=== PATIENT | female | born 1980 | race Caucasian/White ===

== ENCOUNTER 2019-12-28 17:01 | Outpatient (REF) | payer OTHER, SELFPAY ==
--- NOTE | 2019-12-28 | MM_ITS ---
EXAMINATION: MM SCREENING DIGITAL BREAST TOMOSYNTHESIS, BILATERAL CLINICAL INFORMATION: Screening. Asymptomatic. Family history breast cancer. No prior mammography. Age 39. The lifetime risk of breast cancer based on the Tyrer-Cuzick Model is 22%. COMPARISON: None (current study represents initial baseline exam). TECHNIQUE: Digital breast tomosynthesis is performed in both the craniocaudal and mediolateral oblique views along with computer-aided detection (CAD). Synthesized 2D images are generated from the tomosynthesis. Additional right MLO and bilateral exaggerated CC views are provided. FINDINGS: There are scattered areas of fibroglandular density (ACR BI-RADS breast composition Category b). Breast tissue composition borders on predominantly fatty. There is no significant mass or architectural abnormality. There are no abnormal calcifications. The axilla and skin contours are unremarkable. IMPRESSION: No mammographic evidence of malignancy. ASSESSMENT: BI-RADS 1: Negative RECOMMENDATION: 1. Routine annual mammography screening. 2. The lifetime risk of breast cancer based on the Tyrer-Cuzick Model is 22%. Additional annual screening with breast MRI may be of benefit in women with a risk score of 20% or greater. This patient's information was entered into a reminder system with a target due date for their next mammogram.
== END 2019-12-28 17:02 | disposition home or self-care (01) ==
LOC: HO.MAMMO 17:01
PROVIDERS: Visit Provider Hospitalist
DX: Z12.31 Encounter for screening mammogram for malignant neoplasm of breast (principal)
CPT/HCPCS: 77063; 77067

== ENCOUNTER 2020-01-26 10:16 | Outpatient (REF) | payer OTHER, SELFPAY ==
[2020-01-26 13:00] LABS: Alanine Aminotransferase 23 U/L (0-31); Albumin Level 4.3 g/dL (3.5-5.0); Alkaline Phosphatase 54 U/L (39-117); Aspartate Amino Transferase 15 U/L (5-31); Bilirubin Direct 0.2 mg/dL (0.0-0.5); Bilirubin Total 0.5 mg/dL (0.0-1.0)
[2020-01-27 03:09] LABS: CT PCR NOT DETECTED (Not Detect.); NG PCR NOT DETECTED (Not Detect.)
[2020-01-27 08:18] LABS: BV Int Neg Control Negative (Negative); BV Int Pos Control Positive (Positive)
== END 2020-01-26 10:17 | disposition home or self-care (01) ==
LOC: HO.LAB 10:16
PROVIDERS: PCP Hospitalist; Referring Provider Hospitalist; Visit Provider Obstetrics & Gynecology
DX: Z01.419 Encounter for gynecological examination (general) (routine) without abnormal findings (principal); B37.3 Candidiasis of vulva and vagina; N76.0 Acute vaginitis; B96.89 Other specified bacterial agents as the cause of diseases classified elsewhere
CPT/HCPCS: 80076; 87480; 87491; 87510; 87591; 87660

== ENCOUNTER → 2020-04-20 10:29 | Outpatient (BNVA) | payer OTHER, SELFPAY | PROVIDERS: PCP Hospitalist | DX: Z30.42 Encounter for surveillance of injectable contraceptive (principal) | CPT/HCPCS: 96372; 99211; J1050 ==

== ENCOUNTER → 2020-07-13 10:48 | Outpatient (BNVA) | payer OTHER, SELFPAY | PROVIDERS: PCP Hospitalist; Visit Provider Advanced Practice Midwife | DX: Z30.9 Encounter for contraceptive management, unspecified (principal) | CPT/HCPCS: 96372; 99211; J1050 ==

== ENCOUNTER → 2020-10-04 10:44 | Outpatient (BNVA) | payer OTHER, SELFPAY | PROVIDERS: PCP Hospitalist; Visit Provider Advanced Practice Midwife | DX: Z30.42 Encounter for surveillance of injectable contraceptive (principal) | CPT/HCPCS: 96372; 99211 ==

== ENCOUNTER → 2020-12-28 10:49 | Outpatient (BNVA) | payer OTHER, SELFPAY | PROVIDERS: PCP Hospitalist; Visit Provider Advanced Practice Midwife | DX: Z30.42 Encounter for surveillance of injectable contraceptive (principal) | CPT/HCPCS: 96372; 99211 ==

== ENCOUNTER 2021-01-31 09:49 | Outpatient (REF) | payer OTHER, SELFPAY ==
[2021-02-03 02:47] LABS: HPV mRNA E6/E7 rflx Not Detected (Not Detected)
== END 2021-01-31 09:50 | disposition home or self-care (01) ==
LOC: HO.LAB 09:49
PROVIDERS: PCP Hospitalist; Visit Provider Obstetrics & Gynecology
DX: Z01.419 Encounter for gynecological examination (general) (routine) without abnormal findings (principal); Z11.51 Encounter for screening for human papillomavirus (HPV)
CPT/HCPCS: 87624; 88142

== ENCOUNTER 2021-03-01 10:30 | Outpatient (REF) | payer OTHER, SELFPAY ==
--- NOTE | ~2021-03-01 | MM_ITS ---
EXAMINATION: MM SCREENING DIGITAL BREAST TOMOSYNTHESIS, BILATERAL CLINICAL INFORMATION: Screening. Asymptomatic. The lifetime risk of breast cancer based on the Tyrer-Cuzick Model is 24.2%. Additional annual screening with breast MRI may be of benefit in women with a Score of 20% or greater. COMPARISON: Mammography: December 28, 2019 TECHNIQUE: Digital breast tomosynthesis is performed in both the craniocaudal and mediolateral oblique views along with computer-aided detection (CAD). Synthesized 2D images are generated from the tomosynthesis. FINDINGS: The breasts are almost entirely fatty (ACR BI-RADS breast composition Category a). There are no significant masses, abnormal calcifications, or other abnormalities. MM/MM tomosynthesis screening BI IMPRESSION: There are no significant changes from prior study. ASSESSMENT: BI-RADS 1: Negative RECOMMENDATION: Routine annual mammography screening. This patient's information was entered into a reminder system with a target due date for their next mammogram.
== END 2021-03-01 10:31 | disposition home or self-care (01) ==
LOC: HO.MAMMO 10:30
PROVIDERS: PCP Hospitalist; Visit Provider Obstetrics & Gynecology
DX: Z12.31 Encounter for screening mammogram for malignant neoplasm of breast (principal)
CPT/HCPCS: 77063; 77067

== ENCOUNTER → 2021-03-19 08:57 | Outpatient (BNVA) | payer OTHER, SELFPAY | PROVIDERS: Visit Provider Obstetrics & Gynecology | DX: Z91.89 Other specified personal risk factors, not elsewhere classified (principal); Z30.9 Encounter for contraceptive management, unspecified | CPT/HCPCS: 99212 ==

== ENCOUNTER → 2021-04-13 08:54 | Outpatient (BNVA) | payer OTHER, SELFPAY | PROVIDERS: PCP Hospitalist; Referring Provider Hospitalist; Visit Provider Surgery | DX: Z91.89 Other specified personal risk factors, not elsewhere classified (principal); Z80.3 Family history of malignant neoplasm of breast | CPT/HCPCS: 99202 ==

== ENCOUNTER → 2021-05-25 08:58 | Outpatient (BNVA) | payer OTHER, SELFPAY | PROVIDERS: PCP Hospitalist; Referring Provider Hospitalist; Visit Provider Surgery | DX: Z91.89 Other specified personal risk factors, not elsewhere classified (principal) | CPT/HCPCS: 99212 ==

== ENCOUNTER → 2021-06-01 08:49 | Outpatient (BNV) | payer OTHER, SELFPAY | PROVIDERS: PCP Hospitalist; Referring Provider Surgery; Visit Provider Internal Medicine | DX: Z80.3 Family history of malignant neoplasm of breast (principal) | CPT/HCPCS: 99204; 99213; 99214; G2211 ==

== ENCOUNTER 2021-08-07 09:26 | Outpatient (REF) | payer OTHER, SELFPAY ==
[2021-08-07 10:38] LABS: Blood Urea Nitrogen 7 mg/dL (9-16); Estimated Glomerular Filt Rate > 60
== END 2021-08-07 09:27 | disposition home or self-care (01) ==
LOC: HO.LAB 09:26
PROVIDERS: PCP Hospitalist; Visit Provider Obstetrics & Gynecology
DX: Z01.812 Encounter for preprocedural laboratory examination (principal); Z91.89 Other specified personal risk factors, not elsewhere classified
CPT/HCPCS: 36415; 82565; 84520

== ENCOUNTER 2021-08-09 16:37 | Outpatient (REF) | payer OTHER, SELFPAY ==
--- NOTE | ~2021-08-09 | MR_ITS ---
EXAMINATION: MR BREAST WITHOUT AND WITH CONTRAST, BILATERAL CLINICAL INFORMATION: High-risk screening. Family history of breast cancer. COMPARISON: No prior breast MRI. TECHNIQUE: Imaging was performed with a dedicated breast coil. Prior to the administration of contrast, bilateral axial T1 and bilateral axial T2 weighted sequences were obtained. After the uneventful administration of?10 mL of Gadavist, dynamic contrast-enhanced VIBRANT series through the breasts in the axial plane were performed. Subtracted images were performed and reviewed. A delayed sagittal sequence through both breasts was acquired. Additionally, CAD post-processing, including maximum intensity projections, 3-D reconstructions and kinetic analysis, were performed an independent workstation and reviewed by the interpreting radiologist is a portion of this exam. FINDINGS: The patient's fibroglandular tissue demonstrates minimal background enhancement. LEFT BREAST: No suspicious masslike or non-masslike enhancement. No abnormal skin thickening or nipple retraction. No abnormal architectural distortion. Review of the T2 weighted images demonstrates no fibrocystic changes or dilated ducts. Review of kinetic images reveals no additional findings. RIGHT BREAST: No suspicious masslike or non-masslike enhancement. No abnormal skin thickening or nipple retraction. No abnormal architectural distortion. Review of the T2 weighted images demonstrates no fibrocystic changes or dilated ducts. Review of kinetic images reveals no additional findings. There is no suspicious internal mammary chain or axillary adenopathy. Limited views of the chest and abdomen are unremarkable. MR/MR breast BI wo/w con IMPRESSION: No MR specific evidence of malignancy. ASSESSMENT: LEFT BREAST: BI-RADS 1-Negative RIGHT BREAST: BI-RADS 1-Negative RECOMMENDATIONS: Clinical follow-up. Continued annual mammographic surveillance. Further breast MRI as risk factors dictate.
== END 2021-08-09 16:38 | disposition home or self-care (01) ==
LOC: HO.MRI 16:37
PROVIDERS: Visit Provider Obstetrics & Gynecology
DX: Z91.89 Other specified personal risk factors, not elsewhere classified (principal)
CPT/HCPCS: 77049; A9585

== ENCOUNTER → 2021-11-27 09:32 | Outpatient (BNVA) | payer OTHER, SELFPAY | PROVIDERS: PCP Hospitalist; Referring Provider Hospitalist; Visit Provider Surgery | DX: Z80.3 Family history of malignant neoplasm of breast (principal); Z79.810 Long term (current) use of selective estrogen receptor modulators (SERMs) | CPT/HCPCS: 99212 ==

== ENCOUNTER 2022-02-12 12:33 | Outpatient (REF) | payer OTHER, SELFPAY ==
[2022-02-12 14:12] LABS: Hematocrit 38.6 % (37.0-47.0); Hemoglobin 12.8 g/dl (12.0-16.0); Mean Corpuscular HGB Conc 33.2 g/dl (31.0-35.0); Mean Corpuscular Hemoglobin 29.6 pg (27.0-33.0); Mean Corpuscular Volume 89.1 fL (80.0-98.0); Platelet Count 274 X10*3/uL (160-400); Red Blood Count 4.33 X10*6/uL (4.20-5.50); Red Cell Distribution Width 12.3 % (11.0-16.0); White Blood Count 9.2 X10*3/uL (4.8-10.8)
[2022-02-12 15:17] LABS: Alanine Aminotransferase 32 U/L (0-31); Alkaline Phosphatase 68 U/L (39-117); Anion Gap 15 (12-20); Aspartate Amino Transferase 24 U/L (5-31); Bilirubin Total 0.3 mg/dL (0.0-1.0); Blood Urea Nitrogen 7 mg/dL (9-16); Calcium 9.4 mg/dL (8.4-10.2); Carbon Dioxide 24 mmol/L (22-29); Chloride 102 mmol/L (96-108); Cholesterol 150 mg/dL; Estimated Glomerular Filt Rate > 60; Glucose Fasting 169 mg/dL (60-99); HDL Cholesterol 33 mg/dL; LDL Cholesterol Calculated 52 mg/dl; Potassium 4.1 mmol/L (3.3-5.1); Sodium 137 mmol/L (135-145); TSH reflex Free T4 1.06 uIU/mL (0.32-4.0); Total Protein 6.5 g/dL (6.5-8.0); Triglycerides 329 mg/dL
[2022-02-12 15:23] LABS: Vitamin B12 259 pg/mL (200-900)
[2022-02-17 15:03] LABS: Vitamin D 25-OH, D2 <4 ng/mL; Vitamin D 25-OH, D3 35 ng/mL; Vitamin D 25-OH, Total 35 ng/mL (30-100)
== END 2022-02-12 12:34 | disposition home or self-care (01) ==
LOC: HO.WFDLDS 12:33
PROVIDERS: Visit Provider Hospitalist
DX: Z00.00 Encounter for general adult medical examination without abnormal findings (principal); R53.83 Other fatigue; R20.2 Paresthesia of skin
CPT/HCPCS: 36415; 80053; 80061; 82306; 82607; 84443; 85027

== ENCOUNTER 2022-03-07 08:43 | Outpatient (REF) | payer OTHER, SELFPAY | END 2022-03-07 08:44 | disposition home or self-care (01) | LOC: HO.MAMMO 08:43 | PROVIDERS: PCP Hospitalist; Visit Provider Hospitalist | DX: Z12.31 Encounter for screening mammogram for malignant neoplasm of breast (principal) | CPT/HCPCS: 77063; 77067 ==

== ENCOUNTER → 2022-06-04 11:17 | Outpatient (BNVA) | payer OTHER, SELFPAY | PROVIDERS: PCP Hospitalist; Visit Provider Surgery | DX: Z80.3 Family history of malignant neoplasm of breast (principal) | CPT/HCPCS: 99212 ==

== ENCOUNTER 2022-06-19 07:58 | Outpatient (REF) | payer OTHER, SELFPAY ==
--- NOTE | ~2022-06-19 | MR_ITS ---
EXAMINATION: MR BREAST WITHOUT AND WITH CONTRAST, BILATERAL CLINICAL INFORMATION: High-risk screening, family history of breast cancer. COMPARISON: Bilateral breast MRI 08/09/2021. TECHNIQUE: Imaging was performed with a dedicated breast coil. Prior to the administration of contrast, bilateral axial T1 and bilateral axial T2 weighted sequences were obtained. After the uneventful administration of?10 mL of Gadavist, dynamic contrast-enhanced VIBRANT series through the breasts in the axial plane were performed. Subtracted images were performed and reviewed. A delayed sagittal sequence through both breasts was acquired. Additionally, CAD post-processing, including maximum intensity projections, 3-D reconstructions and kinetic analysis, were performed an independent workstation and reviewed by the interpreting radiologist is a portion of this exam. FINDINGS: The patient's fibroglandular tissue is scattered in distribution. There is no significant background parenchymal enhancement present. LEFT BREAST: In the 11 o'clock position, 12 cm from the nipple (subtracted sequence image 37 of 116) there is a new T2 hypointense round enhancing focus measuring 0.3 cm; despite its small size, this finding demonstrates indeterminate enhancement kinetics, combined type II and type III curve. There is no other suspicious mass, duct dilatation or ductal type enhancement present. A 0.2 cm T2 hyperintense nodule positioned along a vascular structure in the 9 to 10 o'clock position is most consistent with a small intramammary lymph node. There is no skin thickening or nipple retraction seen. RIGHT BREAST: In the 2 o'clock position, 6 cm from the nipple (subtracted sequence image 47 of 116) there is a new oval, T2 intermediate signal indistinct nodule measuring 0.4 x 0.2 cm; this demonstrates indeterminate enhancement kinetics (type II curve). There is no other suspicious mass, duct dilatation or ductal type enhancement present. No skin thickening or nipple retraction is seen. There is no suspicious internal mammary chain or axillary adenopathy. Limited views of the chest and abdomen are unremarkable. MR/MR breast BI wo/w con IMPRESSION: New, indeterminate enhancing nodules are seen bilaterally, a 0.3 cm nodule in the 11 o'clock position of the left breast and a 0.4 cm oval nodule in the 2 o'clock position of the right breast as above. ASSESSMENT: LEFT BREAST: BI-RADS 4, suspicious. RIGHT BREAST: BI-RADS 4, suspicious. RECOMMENDATIONS: Recommend second look ultrasound bilaterally to assess for a correlate which would allow for ultrasound-guided core biopsy. If no sonographic correlate is seen, MR guided core biopsy should be performed. Results were called to PRETTY Posada on 06/21/22.
== END 2022-06-19 07:59 | disposition home or self-care (01) ==
LOC: HO.MRI 07:58
PROVIDERS: PCP Hospitalist; Visit Provider Obstetrics & Gynecology
DX: Z91.89 Other specified personal risk factors, not elsewhere classified (principal); Z80.3 Family history of malignant neoplasm of breast
CPT/HCPCS: 77049; A9585

== ENCOUNTER → 2022-06-27 08:05 | Outpatient (BNVA) | payer OTHER, SELFPAY | PROVIDERS: PCP Hospitalist; Visit Provider Obstetrics & Gynecology | DX: R92.8 Other abnormal and inconclusive findings on diagnostic imaging of breast (principal) | CPT/HCPCS: 99212 ==

== ENCOUNTER 2022-06-28 07:26 | Outpatient (REF) | payer OTHER, SELFPAY ==
--- NOTE | ~2022-06-28 | MM_ITS ---
EXAMINATION: MM DIAGNOSTIC DIGITAL BREAST TOMOSYNTHESIS, BILATERAL US DIAGNOSTIC ULTRASOUND BREAST, BILATERAL CLINICAL INFORMATION: Recent high risk screening MR breasts demonstrates tiny bilateral enhancing nodules. The lifetime risk of breast cancer based on the Tyrer-Cuzick Model is 23%. COMPARISON: Mammography: 03/07/2022, 03/01/2021, 12/28/2019 (baseline), bilateral breast MR 06/19/2022. TECHNIQUE: Digital mammography is performed in craniocaudal and mediolateral oblique views. Digital breast tomosynthesis is performed in implant-displaced craniocaudal and implant-displaced mediolateral oblique views. Synthesized 2D images are generated from the tomosynthesis. Computer-aided detection (CAD) is performed for this exam. Additional left CC view is provided. Ultrasound bilateral breasts is targeted to the areas of interest on MR 06/19/2022. Grayscale imaging and color Doppler are performed without and with harmonics. FINDINGS: Mammography: There are scattered areas of fibroglandular density (ACR BI-RADS breast composition Category b). Breast tissue composition borders on predominantly fatty. Parenchymal pattern and background stromal markings are stable. There is no interval developing density, architectural abnormality, or mass. No abnormal calcifications. The axilla and skin contours are unremarkable. No mammographic correlate for the MR findings. Ultrasound: Bilateral targeted breast ultrasound demonstrates no cystic or solid mass or architectural abnormality. No focal duct ectasia. No skin thickening or edema tracking in soft tissue planes. No ultrasound correlate for the MR findings. Management: Preliminary results are discussed with patient at time of appointment. Breast imaging findings and management options reviewed with the MR interpreting radiologist. Short interval follow-up bilateral breast MR, preferably in 6 months, is also considered a reasonable alternative option to tissue sampling. Case subsequently discussed with Dr. Chand on 07/02/2022. MM/MM tomosynthesis diagnostic BI IMPRESSION: -No mammographic evidence of malignancy. No significant changes from prior exams. -Unremarkable bilateral targeted breast ultrasound. ASSESSMENT: BI-RADS 3: Probably Benign RECOMMENDATION: -Patient to follow-up management options with Dr. Chand. If MR guided biopsy is not anticipated, then follow-up breast MR, preferably in 6 months, is recommended. -Annual bilateral screening mammography. This patient's information was entered into a reminder system with a target due date for their next mammogram.
== END 2022-06-28 07:27 | disposition home or self-care (01) ==
LOC: HO.MAMMO 07:26
PROVIDERS: PCP Hospitalist; Visit Provider Obstetrics & Gynecology
DX: R92.8 Other abnormal and inconclusive findings on diagnostic imaging of breast (principal); Z91.89 Other specified personal risk factors, not elsewhere classified
CPT/HCPCS: 76642; 77062; 77066

== ENCOUNTER → 2022-07-11 09:50 | Outpatient (BNVA) | payer OTHER, SELFPAY | PROVIDERS: PCP Hospitalist; Referring Provider Obstetrics & Gynecology; Visit Provider Surgery | DX: R92.8 Other abnormal and inconclusive findings on diagnostic imaging of breast (principal) | CPT/HCPCS: 99212 ==

== ENCOUNTER 2022-11-06 12:23 | Outpatient (AMB) | payer OTHER, SELFPAY ==
[2022-11-06 12:36] VITALS: BP 132/84; PULSE 98; RESP 12; TEMP 36.4; O2SAT 98; BMI 39.7
--- NOTE | 2022-11-06 12:36 | A.OFFPC_ITS ---
Vital Signs 11/06/22 12:36 Height 5 ft 7 in Weight 253 lb 4 oz BMI 39.7 BP 132/84 Blood Pressure Location Lt brachial Position Sitting Respiration 12 Pulse 98 Pulse Source Pulse Oximeter Temp 97.5 F Temp Source Temporal Artery Scan Pulse Oximetry (%) 98 Oxygen Delivery Method Room Air Intake Visit Reasons: Medication Follow Up Intake Note: Patient states that in November or December to get a MRI. Patient states that in the morning her sugars are high like in 260 ranges then towards herthe eveningher sugar is 167-151. 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: No Accompanied by: Self / Same As Patient Allergies No Known Allergies Allergy (Verified 11/06/22 13:10) Medication List - Last Reconciled 11/06/22 by Amy Eli CNP calcium carbonate-vitamin D3 600 mg-5 mcg (200 unit) 1 tab PO DAILY dulaglutide (Trulicity) 0.75 mg (0.5 mL) subcut QWEEK 1 month levocetirizine (Xyzal) 5 mg PO DAILY PRN metformin 850 mg PO TID multivitamin 1 tab PO DAILY tamoxifen 20 mg PO DAILY Tobacco use date assessed: 11/06/22 Dental Screening Dental Screen Date: 11/06/22 Did you have a dental visit in the last 12 months?: Yes Did you have a dental problem in the last 6 months where you did not have access to dental care?: No Was dental information given to patient?: Patient has dentist HPI HPI Comments History of Present Illness Details 42 y/o female presents for diabetes follow up She is on Trulicity and Metformin which she notes she has been taking as prescribed. Her previous A1c in December 2021 was 8.6%. She was last seen by her PCP in 01/2022. She notes she has been maintaining a healthy diet. She notes she lost 15 lb since she was last seen by her PCP. No acute symptoms today. She notes she is followed by Ophthalmology. Her last eye exam was April 2022; normal [facility] Medical History ASCUS of cervix with negative high risk HPV Diabetes type 2, uncontrolled Surgical History History of appendectomy Ovarian mass Family History Father Prostate CA Cardiovascular disorder Mother No problems noted. 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 Jese Hinson, Daysi Au, Con Andujar and colleagues, with an educational raymundo from [employer]. Review of Systems Const Details: Const Denies chills, Denies fatigue, Denies fever(s), Denies headache(s) and Denies weakness ENT Denies dizziness and Denies headache(s) Card Denies chest pain, Denies lightheadedness, Denies dyspnea and Denies other (Palpitations) Resp Denies cough, Denies dyspnea, Denies wheezing and Denies other ( shortness of breath) GI Denies abdominal pain, Denies melena, Denies hematochezia, Denies change in bowel habits, Denies dyspepsia and Denies nausea Denies hematuria and Denies dysuria Musc Denies abnormal gait, Denies myalgias, Denies arthralgias, Denies numbness and Denies tingling Skin/Breast Denies rash, Denies unusual bruising and Denies wounds Neuro Denies abnormal gait, Denies dizziness, Denies headache(s), Denies memory loss, Denies numbness, Denies Sensory deficit (Neuro), Denies tingling and Denies weakness Psych Denies anxiety, Denies depression, Denies memory loss Endo Denies cold intolerance, Denies fatigue, Denies heat intolerance, Denies polydipsia and Denies polyuria Aller/Immun Denies wheezing Physical exam (Primary Care) Vital Signs: Last Vital Signs Temp 97.5 F 11/06/22 12:36 Pulse 98 11/06/22 12:36 Resp 12 11/06/22 12:36 BP 132/84 11/06/22 12:36 Pulse Ox 98 11/06/22 12:36 Oxygen Delivery Method Room Air 11/06/22 12:36 BMI result Body Mass Index 39.7 Tobacco/Smoking Status: Tobacco use Status Tobacco use date assessed 11/06/22 11/06/22 12:46 Patient Tobacco Use Status Never used Tobacco 11/06/22 12:42 e-Cigarette/Vaping Use Never Used 11/06/22 12:42 Thrive Assessment: Date of Thrive Assessment Date Thrive assessed 10/04/21 11/06/22 12:42 Const Other: General: no acute distress and well developed Nutritional Appearance: well nourished Orientation/consciousness: patient oriented x3 HENMT Head: Yes normocephalic and Yes atraumatic Eyes General: appearance normal, both eyes and all related structures Pupils: Equal, round and reactive pupils present EOM: EOMs intact bilaterally Resp Effort & Inspection: normal respiratory effort Auscultation: clear to auscultation bilaterally Cardio Rate: regular rate Rhythm: regular rhythm Heart sounds: S1 normal heart sound present, S2 normal heart sound present, no gallops, no murmurs and no rubs GI Palpation (GI): No Abdominal aortic bruit present, Soft to palpation, nontender, No hepatosplenomegaly present and No Rebound tenderness present Auscultation: normal bowel sounds General: Yes no CVA tenderness Back/Spine/Pelvis Back: no CVA tenderness Cervical Spine: cervical ROM normal and No Cervical spine tenderness Thoracic/Lumbar Spine: thoraco-lumbar ROM normal, No pain with thoraco-lumbar ROM, No thoracic spinal tenderness and No lumbar spinal tenderness Extrem General: Yes normal to inspection, No edema and No calf tenderness Skin General: warm and dry. Normal skin color. Normal skin turgor Lesions: no lesions Rashes: no rashes Trauma: no lacerations or abrasions Wounds: no wounds Nails: normal Neuro General: patient oriented x3, gait normal and no focal neuro deficit Cranial nerves: Yes Equal, round and reactive pupils present Cognition (Neuro): normal cognition Gait exam (Neuro): Normal gait present Sensory Exam: No Sensory deficit (Neuro) Psych Appearance: grossly normal Affect: normal affect Attitude: cooperative Thought process: Normal thought process present Assessment and Plan Assessment & Plan (1) Diabetes type 2, uncontrolled: Code(s): E11.65 - Type 2 diabetes mellitus with hyperglycemia Plan: A1c 7.6% today, above goal of less than 7.0% Previous A1c was 8.6% Trulicity increased to 1.5 mg weekly. Take as prescribed Metformin as prescribed ADA diet and routine exercise encouraged Previous triglycerides and total cholesterol where elevated; LDL was 52, within goal of less than 100; HLD was below goal of greater than 40 Labs ordered. Will check lipid panels Advised to get fasting blood work done before next visit Follow-up with Ophthalmology as planned Follow-up in 3 months for diabetes and a physical exam Return sooner with symptoms or concerns Verbalized understanding and agreed with treatment plan. (2) Laboratory tests ordered as part of a complete physical exam (CPE): Code(s): Z00.00 - Encounter for general adult medical examination without abnormal findings Plan: Fasting labs ordered as part of a complete physical exam. Advised to fast for at least 10 hours before getting labs drawn. May drink water Verbalized understanding and agreed with treatment plan. Orders: Orders Complete Blood Count Auto Diff Today E11.65 - Type 2 diabetes mellitus with hyperglycemia, Z00.00 - Encounter for general adult medical examination without abnormal findings Comprehensive [place]. Panel Fast Today E11.65 - Type 2 diabetes mellitus with hyperglycemia, Z00.00 - Encounter for general adult medical examination without abnormal findings Lipid Panel Today E11.65 - Type 2 diabetes mellitus with hyperglycemia, Z00.00 - Encounter for general adult medical examination without abnormal findings TSH reflex Free T4 Today E11.65 - Type 2 diabetes mellitus with hyperglycemia, Z00.00 - Encounter for general adult medical examination without abnormal findings UA CC w/rflx Micro + Cult Today E11.65 - Type 2 diabetes mellitus with hyperglycemia, Z00.00 - Encounter for general adult medical examination without abnormal findings Microalbumin, Random (w Creat) Today E11.65 - Type 2 diabetes mellitus with hyperglycemia, Z00.00 - Encounter for general adult medical examination without abnormal findings Medications: New dulaglutide 1.5 mg (0.5 mL) subcut QWEEK 30 days 2.5 mL 2RF Discontinued dulaglutide (Trulicity) Discontinued Reason: Doctor's Order 0.75 mg (0.5 mL) subcut QWEEK 1 month 2.5 mL 1RF E11.65 - Type 2 diabetes mellitus with hyperglycemia Coding Level of Care Code Est Pt Level 3 (88927) Diagnoses Diabetes type 2, uncontrolled E11.65 Laboratory tests ordered as part of a complete physical exam (CPE) Z00.00
== END 2022-11-06 13:42 | disposition home or self-care (01) ==
PROVIDERS: PCP Hospitalist; Visit Provider Nurse Practitioner Family
DX: E11.65 Type 2 diabetes mellitus with hyperglycemia (principal); Z00.00 Encounter for general adult medical examination without abnormal findings
CPT/HCPCS: 99213

== ENCOUNTER 2022-12-19 09:48 | Outpatient (REF) | payer OTHER, SELFPAY | END 2022-12-19 09:49 | disposition home or self-care (01) | LOC: HO.MRI 09:48 | PROVIDERS: PCP Nurse Practitioner Family; Visit Provider Surgery | DX: R92.8 Other abnormal and inconclusive findings on diagnostic imaging of breast (principal) | CPT/HCPCS: 77049; A9585 ==

== ENCOUNTER 2023-01-23 15:42 | Outpatient (AMB) | payer OTHER, SELFPAY ==
--- NOTE | 2023-01-23 15:45 | A.OFFVIS_ITS ---
Intake Vital Signs 01/23/23 15:52 Height 5 ft 7 in Weight 238 lb 6 oz BMI 37.3 BP 141/78 H Blood Pressure Location Lt brachial Position Sitting Pulse 103 H Intake Visit Reasons: MRI f/u~ breast exam Intake Note: Patient is seen in office for breast MRI results, following breast exam. 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 Her family history includes a paternal grandmother and paternal aunt with breast cancer. She has a history of bilateral breast skin infections which improved after starting antibacterial soaps. She denies a previous history of breast surgery or breast cancer. She is , menarche at age 11, and is postmenopausal for greater than 20 years. The Tyrer-Cuzick remaining lifetime risk of breast cancer was calculated at 26% placing her at high risk for breast cancer. She was placed on the high risk protocol including yearly mammogram and breast MRI alternating every 6 months, twice yearly clinical breast examination and monthly self examinations. Her latest breast MRI on 06/28/2022 revealed bilateral areas of indeterminate enhancing at the 11:00 o'clock on the left breast and 02:00 o'clock on the right breast, both felt to be suspicious for malignancy. Bilateral mammogram and ultrasounds were recommended. These were obtained on 06/28/2022 and no correlate could be identified to the MR findings. As a result, six-month follow-up breast MRI was obtained on 12/19/2022. This revealed no suspicious masses or suspicious interval changes (BI-RADS 3 bilaterally). Follow-up MRI was recommended in 12 months to document stability. Her next MRIs due on 12/21/2023 and mammogram on 06/30/2023. She feels well and denies any ongoing breast symptoms. [facility] Medical History ASCUS of cervix with negative high risk HPV Diabetes type 2, uncontrolled Surgical History Ovarian mass History of appendectomy Family History Father Prostate CA Cardiovascular disorder Mother No problems noted. 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[employer] Sexual orientation: Straight/Heterosexual Gender identity: Female Cognitive needs: No Hearing needs: No Vision needs: No Female Reproductive History Menstrual Age of Menarche: 11 Total pregnancies: 0 Review of Systems Const All systems reviewed & are unremarkable except as noted in HPI and below Denies chills, Denies fever(s), Denies headache(s) and Denies poor appetite ENT Denies dizziness and Denies headache(s) Card Denies chest pain, Denies rapid heart rate, Denies palpitations and Denies slow heart rate Resp Denies chest congestion, Denies cough, Denies pain on inspiration and Denies wheezing GI Denies abdominal pain, Denies bloating, Denies change in stool character, Denies constipation, Denies diarrhea, Denies nausea, Denies vomiting and Denies hematemesis Denies nipple discharge Musc Denies back pain, Denies arthralgias, Denies joint swelling and Denies numbness Skin/Breast Denies breast skin changes, Denies breast pain, Denies breast mass, Denies change in breast shape, Denies change in pigmentation, Denies nipple discharge, Denies erythema and Denies rash Neuro Denies dizziness, Denies headache(s) and Denies numbness Psych Denies anxiety and Denies depression Endo Denies palpitations Arie/Lymph Denies easy bleeding, Denies easy bruising and Denies lymphadenopathy Aller/Immun Denies wheezing Physical Exam Vital Signs: Last Vital Signs Pulse 103 H 01/23/23 15:52 BP 141/78 H 01/23/23 15:52 BMI result Body Mass Index 37.3 Const General: cooperative, comfortable and well developed Nutritional Appearance: well nourished Orientation/consciousness: patient oriented x3 Neck Neck: Yes normal visual inspection, Yes no lymphadenopathy and Yes trachea midline Chest Other: Left breast: No skin change, no nipple retraction, no nipple discharge, no palpable mass, no enlarged lymph nodes. Right breast: No skin change, no nipple retraction, no nipple discharge, no palpable mass, no enlarged lymph nodes Resp Effort & Inspection: normal respiratory effort, no cough, no respiratory distress and no stridor Cardio Jugular venous distension: no JVD GI Inspection: Yes normal to inspection Skin General skin exam: dry skin Rashes: no rashes Neuro General: patient oriented x3 and no focal motor deficits Extrem General: Yes full ROM and Yes no clubbing, cyanosis or edema Psych Appearance: grossly normal Assessment & Plan Assessment & Plan (1) Abnormal MRI, breast: Code(s): R92.8 - Other abnormal and inconclusive findings on diagnostic imaging of breast Plan 42-year-old female patient felt to be at high risk for breast cancer presenting with a recent breast MRI which revealed bilateral areas of indeterminate enhancing felt to be suspicious. Subsequent mammogram and ultrasound however revealed no suspicious correlate. Six-month follow-up breast MRI on 12/19/2022 revealed no suspicious findings in either breast (BI-RADS 3). Short-term follow-up in 12 months was recommended with breast MRI. She is also due for mammogram June 2023. She should follow up in 6 months for continued high risk screening. Coding Level of Care Code Est Pt Level 3 (35301) Diagnoses Abnormal MRI, breast R92.8
[2023-01-23 15:52] VITALS: BP 141/78; PULSE 103; BMI 37.3
== END 2023-01-23 16:01 | disposition home or self-care (01) ==
PROVIDERS: PCP Nurse Practitioner Family; Visit Provider Surgery
DX: R92.8 Other abnormal and inconclusive findings on diagnostic imaging of breast (principal)
CPT/HCPCS: 99213

== ENCOUNTER → 2023-01-23 15:42 | Outpatient (BNVA) | payer OTHER, SELFPAY | PROVIDERS: PCP Nurse Practitioner Family; Visit Provider Surgery | DX: R92.8 Other abnormal and inconclusive findings on diagnostic imaging of breast (principal) | CPT/HCPCS: 99212 ==

== ENCOUNTER 2023-02-10 10:12 | Outpatient (REF) | payer OTHER, SELFPAY ==
[2023-02-10 12:12] LABS: Alanine Aminotransferase 26 U/L (0-31); Albumin Level 3.9 g/dL (3.5-5.0); Alkaline Phosphatase 37 U/L (39-117); Anion Gap 12 (12-20); Aspartate Amino Transferase 22 U/L (5-31); Bilirubin Total 0.3 mg/dL (0.0-1.0); Blood Urea Nitrogen 6 mg/dL (9-16); Calcium 8.9 mg/dL (8.4-10.2); Carbon Dioxide 27 mmol/L (22-29); Chloride 104 mmol/L (96-108); Cholesterol 168 mg/dL (<200); Estimated Glomerular Filt Rate > 60; Glucose Fasting 128 mg/dL (60-99); HDL Cholesterol 37 mg/dL (>40); LDL Cholesterol Calculated 83 mg/dL (<100); Potassium 3.8 mmol/L (3.3-5.1); Sodium 139 mmol/L (135-145); Total Protein 6.7 g/dL (6.5-8.0); Triglycerides 240 mg/dL (<150)
[2023-02-10 12:29] LABS: TSH reflex Free T4 0.83 uIU/mL (0.32-4.0)
[2023-02-10 15:05] LABS: Appearance Urine Cloudy; Color Urine Yellow; Glucose Urine UA Negative (Negative); Leukocyte Esterase Urine Moderate (2+) (Negative); Nitrite Urine Negative (Negative); PH 5.5 (5.0-9.0); Specific Gravity - Urine 1.015 (1.005-1.025); UMIC TRIGGER UACC YES; Urine Blood Negative (Negative); Urine Ketones Trace mg/dL (Negative); Urine Protein Negative (Neg-Trace)
[2023-02-10 15:15] LABS: Bacteria Urine 2+ (None Seen); RBC Urine 0-2 /HPF (0-2); UACC Culture Trigger YES; WBC Urine 21-50 /HPF (0-5)
[2023-02-10 15:20] LABS: Creatinine Urine 101.65 mg/dL; Microalbum/Creatinine Ratio Ur 8.8 ug/mg cr (<30)
== END 2023-02-10 10:13 | disposition home or self-care (01) ==
LOC: HO.WFDLDS 10:12
PROVIDERS: Visit Provider Nurse Practitioner Family
DX: Z00.00 Encounter for general adult medical examination without abnormal findings (principal); E11.65 Type 2 diabetes mellitus with hyperglycemia
CPT/HCPCS: 36415; 80053; 80061; 81001; 81003; 82043; 82570; 84443; 87086

== ENCOUNTER 2023-02-14 08:24 | Outpatient (AMB) | payer OTHER, SELFPAY ==
[2023-02-14 08:30] VITALS: BP 134/66; PULSE 89; RESP 13; TEMP 36.6; O2SAT 99; BMI 37.6
--- NOTE | 2023-02-14 08:30 | MHC.PC.OV ---
Vital Signs 02/14/23 08:30 Height 5 ft 7 in Weight 240 lb BMI 37.6 BP 134/66 Blood Pressure Location Rt brachial Position Sitting Respiration 13 Pulse 89 Pulse Source Pulse Oximeter Temp 97.8 F Temp Source Temporal Artery Scan Pulse Oximetry (%) 99 Oxygen Delivery Method Room Air Intake Visit Reasons: PE Intake Note: Patient states that she needs a script for trulicity sent over. 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 Accompanied by: Self / Same As Patient Allergies No Known Allergies Allergy (Verified 02/14/23 08:45) Medication List - Last Reconciled 02/14/23 by Amy Eli CNP calcium carbonate-vitamin D3 600 mg-5 mcg (200 unit) 1 tab PO DAILY dulaglutide (Trulicity) 1.5 mg subcut QWEEK levocetirizine (Xyzal) 5 mg PO DAILY PRN metformin 850 mg PO TID multivitamin 1 tab PO DAILY tamoxifen 20 mg PO DAILY Tobacco use date assessed: 11/06/22 Dental Screening Dental Screen Date: 02/14/23 Did you have a dental visit in the last 12 months?: Yes Did you have a dental problem in the last 6 months where you did not have access to dental care?: No Was dental information given to patient?: Patient has dentist HPI HPI Comments History of Present Illness Details 42-year-old female presents for an extended exam and diabetes follow-up She has history of type 2 diabetes and obesity She admits to taking her medications as prescribed without adverse reactions She offers no complaints and denies acute symptoms She notes that she is the Taking of the pounds sensibly (TOPS) weight loss program and was asked to bring a letter from her PCP stating her weight loss goal. She states she intends to lose a total of 60 lb. She had a breast MRI on 12/19/22: Benign finding Her last Pap smear test was a year ago: normal Her last diabetic retinal exam was in October: normal [facility] Medical History ASCUS of cervix with negative high risk HPV Diabetes type 2, uncontrolled Surgical History Ovarian mass History of appendectomy Family History Father Prostate CA Cardiovascular disorder Mother No problems noted. 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 1. Little interest or pleasure in doing things: not at all 2. Feeling down, depressed, or hopeless: not at all 3. Trouble falling or staying asleep, or sleeping too much: nearly every day (staying asleep) 4. Feeling tired or having little energy: not at all 5. Poor appetite or overeating: not at all 6. Feeling bad about yourself - or that you are a failure or have let yourself or your family down: not at all 7. Trouble concentrating on things, such as reading the newspaper or watching television: not at all 8. Moving or speaking so slowly that other people could have noticed. Or the opposite - being so fidgety or restless that you have been moving around a lot more than usual: not at all 9. Thoughts that you would be better off or of hurting yourself in some way: not at all Total score: 3 Depression Screening Interpretation: Negative Depression Screening Done: Yes 51354 - PHQ-9 Billing: Yes Source: Developed by Drs. Jese Hinson, Daysi Au, Con Andujar and colleagues, with an educational raymundo from [employer]. Thrive Questionnaire Date Thrive assessed: 02/14/23 I am a: Patient What is your living situation today?: I have a steady place to live Within the past 12 months, did the food you bought not last and you didn't have the money to get more?: Never true Within the past 12 months, did you worry whether your food would run out before you got money to buy more?: Never true Do you have trouble paying for medicines?: No Do you have trouble getting transportation to medical appointments?: No Do you have trouble paying your heating and electricity bill?: No Do you have trouble taking care of your child, family member or friend?: No Do you have trouble with day-to-day activities such as bathing, preparing meals, shopping, managing finances, etc.?: No Are you currently unemployed and looking for a job?: No Are you interested in more education?: Yes Please select the resources that you would like help with: Education Currently or been in a relationship where the following occur: no concerns reported AUDIT C Alcohol Use Questionnaire (AUDIT-C) 1. How often do you have a drink containing alcohol?: Never 3. How often do you have six or more drinks on one occasion?: Never Total Score: 0 COLLEEN-7 AMB Questionnaire COLLEEN-7 Date COLLEEN - 7 assessed: 02/14/23 Feeling nervous, anxious, or on edge: 0 = Not at all Not being able to stop or control worryin = Not at all Worrying too much about different things: 0 = Not at all Trouble relaxin = Not at all Being so restless that it is hard to sit still: 0 = Not at all Becoming easily annoyed or irritable: 0 = Not at all Feeling afraid as if something awful might happen: 0 = Not at all Total COLLEEN-7 score (0-4 normal; 5-9 mild; 10-14 moderate; 15-21 severe): 0 Source: Developed by Drs. Jese Hinson, Daysi Au, Con Andujar and colleagues, with an educational raymundo from [employer]. Review of Systems Const Details: Denies chills, Denies fatigue, Denies fever(s), Denies headache(s) and Denies weakness HEENT Denies change in vision, Denies dizziness, Denies headache(s), Denies hearing loss, Denies nasal congestion, Denies sinus pain, Denies sinus pressure and Denies sore throat Card Denies chest pain, Denies lightheadedness, Denies dyspnea and Denies other (palpitations) Resp Denies cough, Denies dyspnea and Denies wheezing GI Denies abdominal pain, Denies melena, Denies hematochezia, Denies change in bowel habits, Denies dyspepsia and Denies nausea Denies hematuria and Denies dysuria Musc Denies abnormal gait, Denies myalgias, Denies arthralgias, Denies numbness and Denies tingling Skin/Breast Denies rash, Denies unusual bruising and Denies wounds Neuro Denies abnormal gait, Denies dizziness, Denies headache(s), Denies memory loss, Denies numbness, Denies Sensory deficit (Neuro), Denies tingling and Denies weakness Psych Denies anxiety, Denies depression and Denies memory loss Endo Denies cold intolerance, Denies fatigue, Denies heat intolerance, Denies polydipsia and Denies polyuria Arie/Lymph Denies easy bleeding and Denies easy bruising Aller/Immun Denies wheezing Physical exam (Primary Care) Vital Signs: Last Vital Signs Temp 97.8 F 02/14/23 08:30 Pulse 89 02/14/23 08:30 Resp 13 02/14/23 08:30 BP 134/66 02/14/23 08:30 Pulse Ox 99 02/14/23 08:30 Oxygen Delivery Method Room Air 02/14/23 08:30 BMI result Body Mass Index 37.6 Tobacco/Smoking Status: Tobacco use Status Tobacco use date assessed 11/06/22 02/14/23 08:35 Patient Tobacco Use Status Never used Tobacco 02/14/23 08:35 e-Cigarette/Vaping Use Never Used 02/14/23 08:35 Depression Screening Interpretation: Negative Thrive Assessment: Date of Thrive Assessment Date Thrive assessed 10/04/21 02/14/23 08:35 Currently or been in a relationship where the following occur: no concerns reported Const Other: General: no acute distress, well developed, alert and awake Nutritional Appearance: well nourished Orientation/consciousness: patient oriented x3 HENMT Head: Yes normocephalic and Yes atraumatic Ears: hearing grossly normal bilaterally and TM's normal bilaterally General nose exam: Normal external nose present and Normal nares present Mouth: Normal oral and palatal mucosa present and moist mucous membranes Teeth and gingiva: dentition normal Throat: Yes oropharynx normal Eyes Pupils: Equal, round and reactive pupils present and Pupil accommodation reflex normal EOM: EOMs intact bilaterally Neck Neck: Yes normal visual inspection, Yes no lymphadenopathy and Yes trachea midline Thyroid: Thyroid normal Carotids: no bruits Lymphatic: no lymphadenopathy noted Chest Chest palpation & inspection: normal inspection of the chest Resp Effort & Inspection: normal respiratory effort Auscultation: clear to auscultation bilaterally Cardio Rate: regular rate Rhythm: regular rhythm Heart sounds: S1 normal heart sound present, S2 normal heart sound present, no gallops, no murmurs and no rubs Bruits: no abdominal aortic bruits and no carotid bruits GI Palpation (GI): No Abdominal aortic bruit present, Soft to palpation, nontender, No hepatosplenomegaly present and No Rebound tenderness present Auscultation: normal bowel sounds General: Yes no CVA tenderness Back/Spine/Pelvis Back: no CVA tenderness Cervical Spine: cervical ROM normal and No Cervical spine tenderness Thoracic/Lumbar Spine: thoraco-lumbar ROM normal, No pain with thoraco-lumbar ROM, No thoracic spinal tenderness and No lumbar spinal tenderness Skin General: warm and dry. Normal skin color. Normal skin turgor Lesions: no lesions Rashes: no rashes Trauma: no lacerations or abrasions Wounds: no wounds Nails: normal Neuro General: patient oriented x3, gait normal and CN's II-XI intact bilaterally Cranial nerves: Yes Equal, round and reactive pupils present Cognition (Neuro): normal cognition Gait exam (Neuro): Normal gait present Motor exam (neuro): 5/5 motor strength present throughout Sensory Exam: No Sensory deficit (Neuro) Deep tendon reflexes (DTR's): Right patellar reflex intensity grade: 2+ and Left patellar reflex intensity grade: 2+ Extrem General: Yes normal to inspection, No edema and No calf tenderness Psych Appearance: grossly normal Affect: normal affect Attitude: cooperative Thought process: Normal thought process present Results AMB Hemoglobin A1c AMB Hemoglobin A1c 6.5 % Last Edit by Lucinda Holliday MA on 02/14/23 09:10 Assessment and Plan Assessment & Plan (1) Normal physical exam: Code(s): Z00.00 - Encounter for general adult medical examination without abnormal findings Plan: No significant physical restrictions or limitations noted Continue current treatment regimen Follow-up in 3 months for diabetes and hyperlipidemia Return sooner with symptoms or concerns Verbalized understanding and agreed with treatment plan (2) Type 2 diabetes mellitus: Code(s): E11.9 - Type 2 diabetes mellitus without complications Plan: Her A1c today is 6.5%, within goal of less than 7.0 Up-to-date on diabetic retinal exam Recent urine microalbumin/creatinine ratio is normal, 8.8 Trulicity and metformin as prescribed ADA diet and routine exercise encouraged Follow-up in 3 months Verbalized understanding and agreed with treatment plan5 (3) Obesity (BMI 30-39.9): Code(s): E66.9 - Obesity, unspecified Plan: Her current weight is 240 lb, BMI is 37.6 She is followed by the [facility] weight management program Her weight loss goal is 60 lb Healthy diet and routine exercise encouraged Continue with [facility] as planned. Letter given with weight loss goal Return with symptoms or concerns Verbalized understanding and agreed with treatment plan (4) Hyperlipidemia: Code(s): E78.5 - Hyperlipidemia, unspecified Plan: Recent labs reviewed with patient Triglyceride was elevated, 240. LDL is 83, above goal of less than 70. HDL is low, 37 Atorvastatin ordered. Take as prescribed Advised to limit foods high in saturated fat and avoid foods high trans fat Routine exercise encouraged Will repeat lipid panel. Advised to fast for 10 to 12 hours, may drink water only, and get blood work done before her next visit Follow-up in 3 months Verbalized understanding and agreed with treatment plan Medications: New dulaglutide (Trulicity) 1.5 mg (0.5 mL) subcut QWEEK 2 mL 3RF atorvastatin 10 mg PO BEDTIME 30 days 30 tabs 3RF Coding Level of Care Code Est Pt Prev Care 40-64y(22802) Diagnoses Normal physical exam Z00.00 Type 2 diabetes mellitus E11.9 Obesity (BMI 30-39.9) E66.9 Hyperlipidemia E78.5
== END 2023-02-14 09:14 | disposition home or self-care (01) ==
PROVIDERS: PCP Hospitalist; Visit Provider Nurse Practitioner Family
DX: Z13.9 Encounter for screening, unspecified (principal)
CPT/HCPCS: 83036; 99396; 99499

== ENCOUNTER 2023-03-13 09:17 | Outpatient (REF) | payer OTHER, SELFPAY | END 2023-03-13 09:18 | disposition home or self-care (01) | LOC: HO.MAMMO 09:17 | PROVIDERS: PCP Nurse Practitioner Family; Visit Provider Obstetrics & Gynecology | DX: Z12.31 Encounter for screening mammogram for malignant neoplasm of breast (principal) | CPT/HCPCS: 77063; 77067 ==

== ENCOUNTER → 2023-03-13 09:30 | Outpatient (BNV) | payer OTHER, SELFPAY | PROVIDERS: PCP Nurse Practitioner Family; Visit Provider Radiology Diagnostic Radiology | DX: Z12.31 Encounter for screening mammogram for malignant neoplasm of breast (principal) | CPT/HCPCS: 77063; 77067 ==

== ENCOUNTER 2023-03-31 09:05 | Outpatient (AMB) | payer OTHER, SELFPAY ==
[2023-03-31 09:08] VITALS: BP 120/72; BMI 37.6
--- NOTE | 2023-03-31 09:08 | MHC.OFFVIS ---
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 No complaints. Last Pap/HPV was ascus/HPV negative in 02/04 Last Mammogram was BI-RADS 1 in 03/08 [facility] Medical History ASCUS of cervix with negative high risk HPV Diabetes type 2, uncontrolled Surgical History Ovarian mass History of appendectomy Family History Father Prostate CA Cardiovascular disorder Mother No problems noted. 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 Gender identity: Female Cognitive needs: No Hearing needs: No Vision needs: No Female Reproductive History Menstrual Age of Menarche: 11 Duration of menses: 3-5 days Total pregnancies: 0 Date of last pap smear: 02/01/21 (Ascus) History of abnormal pap smear: Yes Date of Mammogram: 03/13/23 Review of Systems Const All systems reviewed & are unremarkable except as noted in HPI and below Card Reports as per HPI Resp Reports as per HPI GI Reports as per HPI and Reports no additional complaints Reports as per HPI Physical Exam Vital Signs: Last Vital Signs BP 120/72 03/31/23 09:08 BMI result Body Mass Index 37.6 Const General: cooperative, healthy appearing and comfortable Chest Chest palpation & inspection: normal inspection of the chest and normal palpation of entire chest wall Breast/axilla inspection: normal inspection of the breasts and normal inspection of the axillae Breast/axilla palpation: normal palpation of the breasts, normal palpation of the axillae and no axillary lymphadenopathy Resp Effort & Inspection: normal respiratory effort Auscultation: clear to auscultation bilaterally Percussion: percussion normal Cardio Palpation: normal PMI Rate: regular rate Rhythm: regular rhythm Heart sounds: no murmurs and no rubs Peripheral pulses: Peripheral pulses 2+ throughout GI Inspection: Yes normal to inspection Palpation (GI): Soft to palpation, nontender, no guarding, not rigid and No hepatosplenomegaly present Percussion: Yes normal to percussion Auscultation: normal bowel sounds Rectal Exam - Female: deferred General: Yes bladder normal to palpation External Female Exam: No lesion Speculum Exam - Vagina: normal appearance of the vagina, normal palpation, normal vaginal discharge and not erythematous Speculum Exam - Cervix: normal appearance of the cervix and normal palpation Bimanual exam- vagina & uterus: normal bimanual exam, normal palpation, uterine size normal, bladder normal to palpation, consistency normal and normal palpation Bimanual Exam- Adnexa, other: normal adnexae, no masses and no tenderness Assessment & Plan Assessment & Plan (1) Well woman exam: Comment: ASCUS HPV negative in 03/06 Code(s): Z01.419 - Encounter for gynecological examination (general) (routine) without abnormal findings Plan: Cotesting done. Instructions given the patient to schedule next screen Mammogram in 03/09. The patient is under the care of Dr. Chand for high-risk status, and schedule for breast MRI within few months. Counseled the patient about the recommended dietary allowance of 1000 mg of Calcium & 600 IU of vitamin D. The patient was instructed to perform monthly self-breast exams and to schedule an annual exam in a year; All questions answered and the patient verbalized understanding. Instructed the patient to schedule annual exam in a year Coding Level of Care Code Est Pt Prev Care 40-64y(88282) Diagnoses Well woman exam Z01.419
== END 2023-03-31 09:28 | disposition home or self-care (01) ==
LOC: HO.HWS 09:05
PROVIDERS: PCP Nurse Practitioner Family; Visit Provider Obstetrics & Gynecology
DX: Z01.419 Encounter for gynecological examination (general) (routine) without abnormal findings (principal)
CPT/HCPCS: 99396

== ENCOUNTER 2023-03-31 09:05 | Outpatient (REF) | payer OTHER, SELFPAY ==
[2023-04-02 21:20] LABS: HPV mRNA E6/E7 rflx Not Detected (Not Detected)
== END 2023-03-31 09:06 | disposition home or self-care (01) ==
LOC: HO.LNP 09:05
PROVIDERS: PCP Nurse Practitioner Family; Visit Provider Obstetrics & Gynecology
DX: Z01.419 Encounter for gynecological examination (general) (routine) without abnormal findings (principal); R87.610 Atypical squamous cells of undetermined significance on cytologic smear of cervix (ASC-US)
CPT/HCPCS: 87624; 88142; 99396

== ENCOUNTER 2023-05-15 09:45 | Outpatient (REF) | payer OTHER, SELFPAY ==
[2023-05-15 13:03] LABS: MANUAL DIFF FLAG NO
[2023-05-15 13:11] LABS: Basophils Absolute Auto 0.1 X10*3/uL (0.0-0.2); Basophils Percent Auto 0.8 % (0-2); Eosinophils Absolute Auto 0.2 X10*3/uL (0.0-0.4); Eosinophils Percent Auto 2.1 % (0-4); Hematocrit 39.5 % (37.0-47.0); Hemoglobin 13.2 g/dl (12.0-16.0); Imm Gran Abs Auto 0.03 X10*3/uL (0.00-0.03); Imm Gran Pct Auto 0.3 % (0.0-0.4); Lymphocytes Absolute Auto 4.2 X10*3/uL (1.2-4.9); Lymphocytes Percent Auto 41.9 % (20-40); Mean Corpuscular HGB Conc 33.4 g/dl (31.0-35.0); Mean Corpuscular Hemoglobin 30.4 pg (27.0-33.0); Mean Platelet Volume 9.4 fL (9.4-12.3); Monocytes Absolute Auto 0.6 X10*3/uL (0.1-1.2); Monocytes Percent Auto 5.7 % (2-11); Neutrophils Percent Auto 49.2 % (45-73); Platelet Count 263 X10*3/uL (160-400); Red Blood Count 4.34 X10*6/uL (4.20-5.50); White Blood Count 10.1 X10*3/uL (4.8-10.8)
[2023-05-15 13:35] LABS: Appearance Urine Turbid; Color Urine Yellow; Glucose Urine UA Negative (Negative); Leukocyte Esterase Urine Moderate (2+) (Negative); Nitrite Urine Negative (Negative); PH 5.5 (5.0-9.0); Specific Gravity - Urine 1.015 (1.005-1.025); UMIC TRIGGER UACC YES; Urine Blood Negative (Negative); Urine Ketones Trace mg/dL (Negative); Urine Protein Negative (Neg-Trace)
[2023-05-15 13:37] LABS: Bacteria Urine Trace (None Seen); Hyaline Casts Urine 0-2 /LPF (0-2); RBC Urine 0-2 /HPF (0-2); UACC Culture Trigger YES; WBC Urine 21-50 /HPF (0-5)
== END 2023-05-15 09:46 | disposition home or self-care (01) ==
LOC: HO.HMGCLDS 09:45
PROVIDERS: PCP Nurse Practitioner Family; Visit Provider Nurse Practitioner Family
DX: Z00.00 Encounter for general adult medical examination without abnormal findings (principal); E11.65 Type 2 diabetes mellitus with hyperglycemia
CPT/HCPCS: 36415; 81001; 85025; 87086

== ENCOUNTER 2023-05-19 08:49 | Outpatient (AMB) | payer OTHER, SELFPAY ==
--- NOTE | 2023-05-19 08:51 | MHC.PC.OV ---
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 Accompanied by: Self / Same As Patient Allergies No Known Allergies Allergy (Verified 05/19/23 09:05) Medication List - Last Reconciled 05/19/23 by Amy Eli CNP atorvastatin 10 mg PO BEDTIME 30 days calcium carbonate-vitamin D3 600 mg-5 mcg (200 unit) 1 tab PO BID levocetirizine (Xyzal) 5 mg PO DAILY PRN metformin 850 mg PO TID multivitamin 1 tab PO DAILY tamoxifen 20 mg PO DAILY tirzepatide (Mounjaro) 2.5 mg (0.5 mL) subcut QWEEK 4 weeks Tobacco use date assessed: 05/19/23 Dental Screening Dental Screen Date: 05/19/23 Did you have a dental visit in the last 12 months?: Yes Did you have a dental problem in the last 6 months where you did not have access to dental care?: No Was dental information given to patient?: Patient has dentist HPI HPI Comments History of Present Illness Details 43-year-old female presents for diabetes and hyperlipidemia follow-up Her last A1c was 6.5%; LDL was 87 She admits to taking her medications as prescribed without adverse reactions Repeat LDL was inadvertently not ordered She admits to making healthy lifestyle choices including healthy diet and exercise. She continues to participate in the Taking of the pounds sensibly (TOPS) weight loss program She notes that she recently noticed that the nails of her great toes a discolored and will like to be treated [facility] Medical History ASCUS of cervix with negative high risk HPV Diabetes type 2, uncontrolled Surgical History Ovarian mass History of appendectomy Family History Father Prostate CA Cardiovascular disorder Mother No problems noted. 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 Jese Hinson, Daysi Au, Con Andujar and colleagues, with an educational raymundo from [employer]. Review of Systems Const Details: Const Denies chills, Denies fatigue, Denies fever(s), Denies headache(s) and Denies weakness ENT Denies dizziness and Denies headache(s) Card Denies chest pain, Denies lightheadedness, Denies dyspnea and Denies other (Palpitations) Resp Denies cough, Denies dyspnea, Denies wheezing and Denies other ( shortness of breath) GI Denies abdominal pain, Denies melena, Denies hematochezia, Denies change in bowel habits, Denies dyspepsia and Denies nausea Denies hematuria and Denies dysuria Musc Denies abnormal gait, Denies myalgias, Denies arthralgias, Denies numbness and Denies tingling Skin/Breast Denies rash, Denies unusual bruising and Denies wounds Neuro Denies abnormal gait, Denies dizziness, Denies headache(s), Denies memory loss, Denies numbness, Denies Sensory deficit (Neuro), Denies tingling and Denies weakness Psych Denies anxiety, Denies depression, Denies memory loss Endo Denies cold intolerance, Denies fatigue, Denies heat intolerance, Denies polydipsia and Denies polyuria Aller/Immun Denies wheezing Physical exam (Primary Care) Vital Signs: Last Vital Signs Temp 97.3 F 05/19/23 08:52 Pulse 93 05/19/23 08:52 Resp 13 05/19/23 08:52 BP 120/70 05/19/23 08:52 Pulse Ox 99 05/19/23 08:52 Oxygen Delivery Method Room Air 05/19/23 08:52 BMI result Body Mass Index 37.9 Tobacco/Smoking Status: Tobacco use Status Tobacco use date assessed 11/06/22 05/19/23 08:58 Patient Tobacco Use Status Never used Tobacco 05/19/23 08:58 e-Cigarette/Vaping Use Never Used 05/19/23 08:58 Thrive Assessment: Date of Thrive Assessment Date Thrive assessed 02/14/23 05/19/23 08:58 Const Other: General: no acute distress and well developed Nutritional Appearance: well nourished Orientation/consciousness: patient oriented x3 HENMT Head: Yes normocephalic and Yes atraumatic Eyes General: appearance normal, both eyes and all related structures Pupils: Equal, round and reactive pupils present EOM: EOMs intact bilaterally Resp Effort & Inspection: normal respiratory effort Auscultation: clear to auscultation bilaterally Cardio Rate: regular rate Rhythm: regular rhythm Heart sounds: S1 normal heart sound present, S2 normal heart sound present, no gallops, no murmurs and no rubs GI Palpation (GI): No Abdominal aortic bruit present, Soft to palpation, nontender, No hepatosplenomegaly present and No Rebound tenderness present Auscultation: normal bowel sounds General: Yes no CVA tenderness Back/Spine/Pelvis Back: no CVA tenderness Cervical Spine: cervical ROM normal and No Cervical spine tenderness Thoracic/Lumbar Spine: thoraco-lumbar ROM normal, No pain with thoraco-lumbar ROM, No thoracic spinal tenderness and No lumbar spinal tenderness Extrem General: Yes normal to inspection, No edema and No calf tenderness Skin General: warm and dry. Normal skin color. Normal skin turgor Nail: Light brown discoloration of nails of her great toes Neuro General: patient oriented x3, gait normal and no focal neuro deficit Cranial nerves: Yes Equal, round and reactive pupils present Cognition (Neuro): normal cognition Gait exam (Neuro): Normal gait present Sensory Exam: No Sensory deficit (Neuro) Psych Appearance: grossly normal Affect: normal affect Attitude: cooperative Thought process: Normal thought process present Results AMB Hemoglobin A1c AMB Hemoglobin A1c 7.2 % Last Edit by Lucinda Holliday MA on 05/19/23 09:16 Assessment and Plan Assessment & Plan (1) Type 2 diabetes mellitus: Code(s): E11.9 - Type 2 diabetes mellitus without complications Plan: A1c today is 7.2%, slightly above goal of less than 7.0%. Previous A1c was 6.5% Continue current treatment regimen ADA diet and routine exercise encouraged Will recheck A1c in 3 months Follow-up with symptoms or concerns Verbalized understanding and agreed with treatment plan (2) Hyperlipidemia: Code(s): E78.5 - Hyperlipidemia, unspecified Plan: Lipid panel was inadvertently not ordered Lipid panel ordered at this time She has been fasting for more than 10 hours and will get blood work done today Will review results and make changes as needed Continue to take atorvastatin as prescribed Advised to limit foods high in saturated fat and avoid foods high trans fat Routine exercise encouraged Verbalized understanding and agreed with treatment plan (3) Onychomycosis of great toe: Code(s): B35.1 - Tinea unguium Plan: Reports discolored nails of her great toes Light brown discoloration of nails of her great toes, consistent with onychomycosis Recent liver panel in January 2023 was normal Terbinafine ordered. Take as prescribed Will recheck liver panel after 6 weeks of treatment. Advised to get blood work 2-3 days before next visit Follow-up in 6 weeks or return sooner with symptoms or concerns Verbalized understanding and agreed with treatment plan Orders: Orders Lipid Panel Today E11.9 - Type 2 diabetes mellitus without complications, E78.5 - Hyperlipidemia, unspecified AMB Hemoglobin A1c Today E11.9 - Type 2 diabetes mellitus without complications Medications: New terbinafine HCl 250 mg PO DAILY 30 days 30 tabs 2RF Coding Level of Care Code Est Pt Level 4 (84524) Diagnoses Type 2 diabetes mellitus E11.9 Hyperlipidemia E78.5 Onychomycosis of great toe B35.1
[2023-05-19 08:52] VITALS: BP 120/70; PULSE 93; RESP 13; TEMP 36.3; O2SAT 99; BMI 37.9
== END 2023-05-19 09:19 | disposition home or self-care (01) ==
PROVIDERS: PCP Nurse Practitioner Family; Visit Provider Nurse Practitioner Family
DX: E11.9 Type 2 diabetes mellitus without complications (principal); E78.5 Hyperlipidemia, unspecified; B35.1 Tinea unguium
CPT/HCPCS: 83036; 99214

== ENCOUNTER 2023-05-19 09:21 | Outpatient (REF) | payer OTHER, SELFPAY ==
[2023-05-19 12:08] LABS: Cholesterol 121 mg/dL (<200); HDL Cholesterol 42 mg/dL (>40); LDL Cholesterol Calculated 52 mg/dL (<100); Triglycerides 135 mg/dL (<150)
== END 2023-05-19 09:22 | disposition home or self-care (01) ==
LOC: HO.WFDLDS 09:21
PROVIDERS: Visit Provider Nurse Practitioner Family
DX: E78.5 Hyperlipidemia, unspecified (principal); E11.9 Type 2 diabetes mellitus without complications
CPT/HCPCS: 36415; 80061

== ENCOUNTER 2023-06-30 08:57 | Outpatient (AMB) | payer OTHER, SELFPAY ==
[2023-06-30 09:06] VITALS: BP 122/68; PULSE 97; O2SAT 98; BMI 38.0
--- NOTE | 2023-06-30 09:06 | A.OFFPC_ITS ---
Vital Signs 06/30/23 09:06 Height 5 ft 7 in Weight 242 lb 6 oz BMI 38.0 BP 122/68 Blood Pressure Location Rt brachial Position Sitting Pulse 97 Pulse Source Pulse Oximeter Pulse Oximetry (%) 98 Oxygen Delivery Method Room Air Intake Visit Reasons: onychomycosis Intake Note: Patient is here for onychomycosis. Allergies No Known Allergies Allergy (Verified 06/30/23 09:07) Tobacco use date assessed: 06/30/23 Dental Screening Dental Screen Date: 05/19/23 HPI HPI Comments History of Present Illness Details 43-year-old female presents for onychomy cosis of her great toes She started terbinafine almost 6 weeks ago. She admits to taking her medication as prescribed without adverse reactions. She notes significant improvement of her toenails since she started taking the medication. She notes that the discoloration of her left great toe has resolved and that the thickest portion of her right toenail fell off. However, she has nail Nigerien completely covering to nail of her left great toe and partially covering the nail of her right great toe She states that she has been fasting and will have lipid panel blood work done today She offers no complaints and denies acute symptoms at this time [facility] Medical History ASCUS of cervix with negative high risk HPV Diabetes type 2, uncontrolled Surgical History Ovarian mass History of appendectomy Family History Father Prostate CA Cardiovascular disorder Mother No problems noted. 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 Jese Hinson, Daysi Au, Con Andujar and colleagues, with an educational raymundo from [employer]. Review of Systems Const Details: Const Denies chills, Denies fatigue, Denies fever(s), Denies headache(s) and Denies weakness ENT Denies dizziness and Denies headache(s) Card Denies chest pain, Denies lightheadedness, Denies dyspnea and Denies other (Palpitations) Resp Denies cough, Denies dyspnea, Denies wheezing and Denies other ( shortness of breath) GI Denies abdominal pain, Denies melena, Denies hematochezia, Denies change in bowel habits, Denies dyspepsia and Denies nausea Denies hematuria and Denies dysuria Musc Denies abnormal gait, Denies myalgias, Denies arthralgias, Denies numbness and Denies tingling Skin/Breast Reports discolored nail of the right great toe, Denies rash, Denies unusual bruising and Denies wounds Neuro Denies abnormal gait, Denies dizziness, Denies headache(s), Denies memory loss, Denies numbness, Denies Sensory deficit (Neuro), Denies tingling and Denies weakness Psych Denies anxiety, Denies depression, Denies memory loss Endo Denies cold intolerance, Denies fatigue, Denies heat intolerance, Denies polydipsia and Denies polyuria Aller/Immun Denies wheezing Physical exam (Primary Care) BMI result Body Mass Index 38.0 Tobacco/Smoking Status: Tobacco use Status Tobacco use date assessed 06/30/23 06/30/23 09:09 Patient Tobacco Use Status Never used Tobacco 06/30/23 09:09 e-Cigarette/Vaping Use Never Used 06/30/23 09:09 Thrive Assessment: Date of Thrive Assessment Date Thrive assessed 02/14/23 06/30/23 09:09 Const Other: General: no acute distress and well developed Nutritional Appearance: well nourished Orientation/consciousness: patient oriented x3 HENMT Head: Yes normocephalic and Yes atraumatic Eyes General: appearance normal, both eyes and all related structures Pupils: Equal, round and reactive pupils present EOM: EOMs intact bilaterally Resp Effort & Inspection: normal respiratory effort Auscultation: clear to auscultation bilaterally Cardio Rate: regular rate Rhythm: regular rhythm Heart sounds: S1 normal heart sound present, S2 normal heart sound present, no gallops, no murmurs and no rubs GI Palpation (GI): No Abdominal aortic bruit present, Soft to palpation, nontender, No hepatosplenomegaly present and No Rebound tenderness present Auscultation: normal bowel sounds General: Yes no CVA tenderness Back/Spine/Pelvis Back: no CVA tenderness Cervical Spine: cervical ROM normal and No Cervical spine tenderness Thoracic/Lumbar Spine: thoraco-lumbar ROM normal, No pain with thoraco-lumbar ROM, No thoracic spinal tenderness and No lumbar spinal tenderness Extrem General: Yes normal to inspection, No edema and No calf tenderness Skin General: warm and dry. Normal skin color. Normal skin turgor Lesions: no lesions Rashes: no rashes Trauma: no lacerations or abrasions Wounds: no wounds Nails: Thickening and light-brown discoloration of the nail of the right great toe. Nail of left great toe completely covered with nail northern ir[place] Neuro General: patient oriented x3, gait normal and no focal neuro deficit Cranial nerves: Yes Equal, round and reactive pupils present Cognition (Neuro): normal cognition Gait exam (Neuro): Normal gait present Sensory Exam: No Sensory deficit (Neuro) Psych Appearance: grossly normal Affect: normal affect Attitude: cooperative Thought process: Normal thought process present Assessment and Plan Assessment & Plan (1) Onychomycosis of great toe: Code(s): B35.1 - Tinea unguium Plan: Reports significant improvement of discolored nail of agreed toes on current treatment Thickening and light-brown discoloration of the nail of the right great toe. Nail of left great toe completely covered with nail northern ir[place] Liver panel ordered. She will have blood work done today. Will review results and make changes as needed Continue to take terbinafine as prescribed Advised to get repeat liver panel blood work done 2-3 days before next visit Follow-up in 7 weeks for onychomycosis and diabetes or return sooner with symptoms or concerns Verbalized understanding and agreed with treatment plan Orders: Orders Liver Panel 6 Weeks B35.1 - Tinea unguium Liver Panel Today B35.1 - Tinea unguium Medications: Refilled semaglutide (Ozempic) for 4 weeks 0.25 mg (0.368 mL) subcut QWEEK 4 weeks 3 mL 2RF Coding Level of Care Code Est Pt Level 3 (59230) Diagnoses Onychomycosis of great toe B35.1
== END 2023-06-30 09:33 | disposition home or self-care (01) ==
PROVIDERS: PCP Nurse Practitioner Family; Visit Provider Nurse Practitioner Family
DX: B35.1 Tinea unguium (principal)
CPT/HCPCS: 99213

== ENCOUNTER 2023-07-02 10:43 | Outpatient (REF) | payer OTHER, SELFPAY ==
[2023-07-02 14:05] LABS: Alanine Aminotransferase 22 U/L (0-31); Albumin Level 3.9 g/dL (3.5-5.0); Alkaline Phosphatase 70 U/L (39-117); Aspartate Amino Transferase 18 U/L (5-31); Bilirubin Direct 0.1 mg/dL (0.0-0.5); Bilirubin Total 0.3 mg/dL (0.0-1.0); Total Protein 6.9 g/dL (6.5-8.0)
== END 2023-07-02 10:44 | disposition home or self-care (01) ==
LOC: HO.HMGCLDS 10:43
PROVIDERS: PCP Nurse Practitioner Family; Visit Provider Nurse Practitioner Family
DX: B35.1 Tinea unguium (principal)
CPT/HCPCS: 36415; 80076

== ENCOUNTER 2023-07-25 09:07 | Outpatient (AMB) | payer OTHER, SELFPAY ==
--- NOTE | 2023-07-25 09:18 | A.OFFVIS_ITS ---
Vital Signs 07/25/23 09:23 Height 5 ft 7 in Weight 240 lb 4.862 oz BMI 37.6 BP 150/74 H Blood Pressure Location Lt brachial Position Sitting Pulse 84 Intake Visit Reasons: 6 mth breast exam Intake Note: Patient is seen in office for 6 month follow up visit, breast exam. 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 Her family history includes a paternal grandmother and paternal aunt with breast cancer. She has a history of bilateral breast skin infections which improved after starting antibacterial soaps. She denies a previous history of breast surgery or breast cancer. She is , menarche at age 11, and is p ostmenopausal for greater than 20 years. The Tyrer-zick remaining lifetime risk of breast cancer was calculated at 26% placing her at high risk for breast cancer. She was placed on the high risk protocol including yearly mammogram and breast MRI alternating every 6 months, twice yearly clinical breast examination and monthly self examinations. Her latest breast MRI on 06/28/2022 revealed bilateral areas of indeterminate enhancing at the 11:00 o'clock on the left breast and 02:00 o'clock on the right breast, both felt to be suspicious for malignancy. Bilateral mammogram and ultrasounds were recommended. These were obtained on 06/28/2022 and no correlate could be identified to the MR findings. As a result, six-month follow-up breast MRI was obtained on 12/19/2022 which revealed no suspicious masses or suspicious interval changes (BI-RADS 3 bilaterally). Follow-up MRI was recommended in 12 months to document stability. Her last mammogram of 03/13/2023 revealed no mammographic evidence of malignancy (BI-RADS 1). Routine annual screening was recommended 1 year. She will be due for breast MRI in December 2023. [facility] Medical History ASCUS of cervix with negative high risk HPV Diabetes type 2, uncontrolled Surgical History Ovarian mass History of appendectomy Family History Father Prostate CA Cardiovascular disorder Mother No problems noted. 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 Gender identity: Female Cognitive needs: No Hearing needs: No Vision needs: No Female Reproductive History Menstrual Age of Menarche: 11 Review of Systems Const All systems reviewed & are unremarkable except as noted in HPI and below Denies chills, Denies fever(s), Denies headache(s) and Denies poor appetite ENT Denies dizziness and Denies headache(s) Card Denies chest pain, Denies rapid heart rate, Denies palpitations and Denies slow heart rate Resp Denies chest congestion, Denies cough, Denies pain on inspiration and Denies wheezing GI Denies abdominal pain, Denies bloating, Denies change in stool character, Denies constipation, Denies diarrhea, Denies nausea, Denies vomiting and Denies hematemesis Denies nipple discharge Musc Denies back pain, Denies arthralgias, Denies joint swelling and Denies numbness Skin/Breast Denies breast skin changes, Denies breast pain, Denies breast mass, Denies change in breast shape, Denies change in pigmentation, Denies nipple discharge, Denies erythema and Denies rash Neuro Denies dizziness, Denies headache(s) and Denies numbness Psych Denies anxiety and Denies depression Endo Denies palpitations Arie/Lymph Denies easy bleeding, Denies easy bruising and Denies lymphadenopathy Aller/Immun Denies wheezing Physical Exam Vital Signs: Last Vital Signs Pulse 84 07/25/23 09:23 BP 150/74 H 07/25/23 09:23 BMI result Body Mass Index 37.6 Const General: cooperative, comfortable and well developed Nutritional Appearance: well nourished Orientation/consciousness: patient oriented x3 Neck Neck: Yes normal visual inspection, Yes no lymphadenopathy and Yes trachea midline Chest Other: Left breast: No skin change, no nipple retraction, no nipple discharge, no palpable mass, no enlarged lymph nodes. Right breast: No skin change, no nipple retraction, no nipple discharge, no palpable mass, no enlarged lymph nodes Resp Effort & Inspection: normal respiratory effort, no cough, no respiratory distress and no stridor Cardio Jugular venous distension: no JVD GI Inspection: Yes normal to inspection Skin General skin exam: dry skin Rashes: no rashes Neuro General: patient oriented x3 and no focal motor deficits Extrem General: Yes full ROM and Yes no clubbing, cyanosis or edema Psych Appearance: grossly normal Assessment & Plan Assessment & Plan (1) Abnormal MRI, breast: Code(s): R92.8 - Other abnormal and inconclusive findings on diagnostic imaging of breast Category: Medical (2) At high risk for breast cancer: Comment: On tamoxifen Code(s): Z91.89 - Other specified personal risk factors, not elsewhere classified Category: Medical Plan 43-year-old female patient felt to be at high risk for breast cancer presenting with a recent breast MRI which revealed bilateral areas of indeterminate enhancing felt to be suspicious. Subsequent mammogram and ultrasound however revealed no suspicious correlate. Six-month follow-up breast MRI on 12/19/2022 revealed no suspicious findings in either breast (BI-RADS 3). Short-term follow-up in 12 months was recommended with breast MRI. Mammogram of 03/13/2023 revealed no mammographic evidence of malignancy (BI-RADS 1). She will be scheduled for follow-up mammogram for December 2023. Orders: Orders MR breast BI wo/w con 12/22/23 R92.8 - Other abnormal and inconclusive findings on diagnostic imaging of breast, Z91.89 - Other specified personal risk factors, not elsewhere classified Coding Level of Care Code Est Pt Level 3 (93557) Diagnoses Abnormal MRI, breast R92.8 At high risk for breast cancer Z91.89
[2023-07-25 09:23] VITALS: BP 150/74; PULSE 84; BMI 37.6
== END 2023-07-25 09:33 | disposition home or self-care (01) ==
PROVIDERS: PCP Nurse Practitioner Family; Visit Provider Surgery
DX: R92.8 Other abnormal and inconclusive findings on diagnostic imaging of breast (principal); Z80.3 Family history of malignant neoplasm of breast
CPT/HCPCS: 99213

== ENCOUNTER → 2023-07-25 09:07 | Outpatient (BNVA) | payer OTHER, SELFPAY | PROVIDERS: PCP Nurse Practitioner Family; Visit Provider Surgery | DX: R92.8 Other abnormal and inconclusive findings on diagnostic imaging of breast (principal); Z91.89 Other specified personal risk factors, not elsewhere classified; Z79.810 Long term (current) use of selective estrogen receptor modulators (SERMs) | CPT/HCPCS: 99212 ==

== ENCOUNTER 2023-09-09 14:46 | Outpatient (REF) | payer OTHER, SELFPAY ==
[2023-09-09 16:45] LABS: Alanine Aminotransferase 25 U/L (0-31); Albumin Level 4.1 g/dL (3.5-5.0); Alkaline Phosphatase 43 U/L (39-117); Aspartate Amino Transferase 22 U/L (5-31); Bilirubin Direct 0.2 mg/dL (0.0-0.5); Bilirubin Total 0.4 mg/dL (0.0-1.0)
== END 2023-09-09 14:47 | disposition home or self-care (01) ==
LOC: HO.HMGCLDS 14:46
PROVIDERS: PCP Nurse Practitioner Family; Visit Provider Nurse Practitioner Family
DX: B35.1 Tinea unguium (principal)
CPT/HCPCS: 36415; 80076

== ENCOUNTER 2023-09-15 08:46 | Outpatient (AMB) | payer OTHER, SELFPAY ==
--- NOTE | 2023-09-15 08:50 | MHC.PC.OV ---
Vital Signs 09/15/23 08:51 09/15/23 11:17 Height 5 ft 7 in BP 130/80 Blood Pressure Location Lt brachial Position Sitting Intake Visit Reasons: follow up diabetes Allergies No Known Allergies Allergy (Verified 09/15/23 10:47) Tobacco use date assessed: 06/30/23 Dental Screening Dental Screen Date: 05/19/23 HPI HPI Comments History of Present Illness Details 43-year-old female presents for diabetes and onychomycosis follow-up She admits to taking her medications as prescribed without adverse reactions She notes that fungal infection to the nail of her right great toe has resolved. She ran out of terbinafine She admits to making healthy dietary changes She denies hypoglycemic episodes She offers no complaints and denies acute symptoms at this time [facility] Medical History ASCUS of cervix with negative high risk HPV Diabetes type 2, uncontrolled Surgical History Ovarian mass History of appendectomy Family History Father Prostate CA Cardiovascular disorder Mother No problems noted. 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 Jese Hinson, Daysi Au, Con Andujar and colleagues, with an educational raymundo from [employer] Review of Systems Const Details: Const Denies chills, Denies fatigue, Denies fever(s), Denies headache(s) and Denies weakness ENT Denies dizziness and Denies headache(s) Card Denies chest pain, Denies lightheadedness, Denies dyspnea and Denies other (Palpitations) Resp Denies cough, Denies dyspnea, Denies wheezing and Denies other ( shortness of breath) GI Denies abdominal pain, Denies melena, Denies hematochezia, Denies change in bowel habits, Denies dyspepsia and Denies nausea Denies hematuria and Denies dysuria Musc Denies abnormal gait, Denies myalgias, Denies arthralgias, Denies numbness and Denies tingling Skin/Breast Denies rash, Denies unusual bruising and Denies wounds Neuro Denies abnormal gait, Denies dizziness, Denies headache(s), Denies memory loss, Denies numbness, Denies Sensory deficit (Neuro), Denies tingling and Denies weakness Psych Denies anxiety, Denies depression, Denies memory loss Endo Denies cold intolerance, Denies fatigue, Denies heat intolerance, Denies polydipsia and Denies polyuria Aller/Immun Denies wheezing Physical exam (Primary Care) Tobacco/Smoking Status: Tobacco use Status Tobacco use date assessed 06/30/23 09/15/23 08:53 Patient Tobacco Use Status Never used Tobacco 09/15/23 08:53 e-Cigarette/Vaping Use Never Used 09/15/23 08:53 Thrive Assessment: Date of Thrive Assessment Date Thrive assessed 02/14/23 09/15/23 08:53 Const Other: General: no acute distress and well developed Nutritional Appearance: well nourished Orientation/consciousness: patient oriented x3 HENMT Head: Yes normocephalic and Yes atraumatic Eyes General: appearance normal, both eyes and all related structures Pupils: Equal, round and reactive pupils present EOM: EOMs intact bilaterally Resp Effort & Inspection: normal respiratory effort Auscultation: clear to auscultation bilaterally Cardio Rate: regular rate Rhythm: regular rhythm Heart sounds: S1 normal heart sound present, S2 normal heart sound present, no gallops, no murmurs and no rubs GI Palpation (GI): No Abdominal aortic bruit present, Soft to palpation, nontender, No hepatosplenomegaly present and No Rebound tenderness present Auscultation: normal bowel sounds General: Yes no CVA tenderness Back/Spine/Pelvis Back: no CVA tenderness Cervical Spine: cervical ROM normal and No Cervical spine tenderness Thoracic/Lumbar Spine: thoraco-lumbar ROM normal, No pain with thoraco-lumbar ROM, No thoracic spinal tenderness and No lumbar spinal tenderness Extrem General: Yes normal to inspection, No edema and No calf tenderness Skin General: warm and dry. Normal skin color. Normal skin turgor Lesions: no lesions Rashes: no rashes Trauma: no lacerations or abrasions Wounds: no wounds Nails: normal Neuro General: patient oriented x3, gait normal and no focal neuro deficit Cranial nerves: Yes Equal, round and reactive pupils present Cognition (Neuro): normal cognition Gait exam (Neuro): Normal gait present Sensory Exam: No Sensory deficit (Neuro) Psych Appearance: grossly normal Affect: normal affect Attitude: cooperative Thought process: Normal thought process present Results AMB Hemoglobin A1c AMB Hemoglobin A1c 7.0 % Last Edit by SHIVANI Avitia on 09/15/23 10:57 Assessment and Plan Assessment & Plan (1) Type 2 diabetes mellitus: Code(s): E11.9 - Type 2 diabetes mellitus without complications Plan: A1c today 7.0%, slightly above goal of less than 7.0%. Previous A1c was 7.2% Will increase Ozempic to 0.5 mg every week. Advised to administer as prescribed Continue to take metformin as prescribed ADA diet and routine exercise encouraged Follow-up in 3 months or sooner with symptoms or concerns Verbalized understanding and agreed with the treatment plan (2) Onychomycosis of great toe: Code(s): B35.1 - Tinea unguium Plan: Resolved Normal toenails Medications: Changed From semaglutide (Ozempic) for 4 weeks 0.25 mg (0.368 mL) subcut QWEEK 4 weeks 3 mL 2RF To semaglutide (Ozempic) for 4 weeks 0.5 mg (0.736 mL) subcut QWEEK 4 weeks 2.944 mL 2RF Coding Level of Care Code Est Pt Level 4 (22412) Complex EM visit Add On G2211 Diagnoses Type 2 diabetes mellitus E11.9 Onychomycosis of great toe B35.1
[2023-09-15 11:17] VITALS: BP 130/80
== END 2023-09-15 11:24 | disposition home or self-care (01) ==
PROVIDERS: PCP Nurse Practitioner Family; Visit Provider Nurse Practitioner Family
DX: E11.9 Type 2 diabetes mellitus without complications (principal); B35.1 Tinea unguium
CPT/HCPCS: 99214; G2211

== ENCOUNTER 2023-09-15 10:31 | Outpatient (AMB) | payer OTHER, SELFPAY ==
[2023-09-15 10:34] VITALS: BP 134/80; PULSE 114; RESP 14; TEMP 36.5; O2SAT 97; BMI 37.6
--- NOTE | 2023-09-15 10:34 | MHC.PC.OV ---
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: No Accompanied by: Self / Same As Patient Allergies No Known Allergies Allergy (Verified 09/15/23 10:47) Tobacco use date assessed: 06/30/23 Dental Screening Dental Screen Date: 09/15/23 Did you have a dental visit in the last 12 months?: Yes Did you have a dental problem in the last 6 months where you did not have access to dental care?: No Was dental information given to patient?: Patient has dentist PENDING SALE [facility] Medical History ASCUS of cervix with negative high risk HPV Diabetes type 2, uncontrolled Surgical History Ovarian mass History of appendectomy Family History Father Prostate CA Cardiovascular disorder Mother No problems noted. 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 Jese Hinosn, Daysi Au, Con Andujar and colleagues, with an educational raymundo from [employer]. Physical exam (Primary Care) Tobacco/Smoking Status: Tobacco use Status Tobacco use date assessed 06/30/23 06/30/23 09:09 Patient Tobacco Use Status Never used Tobacco 06/30/23 09:09 e-Cigarette/Vaping Use Never Used 06/30/23 09:09 Thrive Assessment: Date of Thrive Assessment Date Thrive assessed 02/14/23 06/30/23 09:09 Coding
== END 2023-09-15 11:21 | disposition home or self-care (01) ==
PROVIDERS: PCP Nurse Practitioner Family; Visit Provider Nurse Practitioner Family
DX: E11.9 Type 2 diabetes mellitus without complications (principal)
CPT/HCPCS: 83036

== ENCOUNTER 2023-12-16 10:49 | Outpatient (AMB) | payer OTHER, SELFPAY ==
--- NOTE | 2023-12-16 10:51 | MHC.PC.OV ---
Vital Signs 12/16/23 10:55 Height 5 ft 7 in Weight 240 lb 2 oz BMI 37.6 BP 122/68 Blood Pressure Location Rt brachial Position Sitting Respiration 14 Pulse 96 Pulse Source Pulse Oximeter Temp 97.7 F Temp Source Oral Pulse Oximetry (%) 99 Oxygen Delivery Method Room Air Intake Visit Reasons: 3m follow up diabetes Intake Note: 3 month follow up diabetes Allergies No Known Allergies Allergy (Verified 12/16/23 11:21) Medication List - Last Reconciled 12/16/23 by Amy Eli CNP atorvastatin 10 mg PO BEDTIME 30 days calcium carbonate-vitamin D3 600 mg-5 mcg (200 unit) 1 tab PO BID levocetirizine (Xyzal) 5 mg PO DAILY PRN metformin 850 mg PO TID multivitamin 1 tab PO DAILY semaglutide (Ozempic) 0.5 mg (0.736 mL) subcut QWEEK 4 weeks tamoxifen 20 mg PO DAILY Tobacco use date assessed: 06/30/23 Dental Screening Dental Screen Date: 05/19/23 HPI HPI Comments History of Present Illness Details 43-year-old female presents for diabetes follow-up She admits to taking her medications as prescribed without adverse reactions She offers no complaints and denies acute symptoms at this time [facility] Medical History ASCUS of cervix with negative high risk HPV Diabetes type 2, uncontrolled Surgical History Ovarian mass History of appendectomy Family History Father Prostate CA Cardiovascular disorder Mother No problems noted. 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 Jese Hinson, Daysi Au, Con Andujar and colleagues, with an educational raymundo from [employer]. Review of Systems Const Details: Const Denies chills, Denies fatigue, Denies fever(s), Denies headache(s) and Denies weakness ENT Denies dizziness and Denies headache(s) Card Denies chest pain, Denies lightheadedness, Denies dyspnea and Denies other (Palpitations) Resp Denies cough, Denies dyspnea, Denies wheezing and Denies other ( shortness of breath) GI Denies abdominal pain, Denies melena, Denies hematochezia, Denies change in bowel habits, Denies dyspepsia and Denies nausea Denies hematuria and Denies dysuria Musc Denies abnormal gait, Denies myalgias, Denies arthralgias, Denies numbness and Denies tingling Skin/Breast Denies rash, Denies unusual bruising and Denies wounds Neuro Denies abnormal gait, Denies dizziness, Denies headache(s), Denies memory loss, Denies numbness, Denies Sensory deficit (Neuro), Denies tingling and Denies weakness Psych Denies anxiety, Denies depression, Denies memory loss Endo Denies cold intolerance, Denies fatigue, Denies heat intolerance, Denies polydipsia and Denies polyuria Aller/Immun Denies wheezing Physical exam (Primary Care) Vital Signs: Last Vital Signs Temp 97.7 F 12/16/23 10:55 Pulse 96 12/16/23 10:55 Resp 14 12/16/23 10:55 BP 122/68 12/16/23 10:55 Pulse Ox 99 12/16/23 10:55 Oxygen Delivery Method Room Air 12/16/23 10:55 BMI result Body Mass Index 37.6 Tobacco/Smoking Status: Tobacco use Status Tobacco use date assessed 06/30/23 12/16/23 10:57 Patient Tobacco Use Status Never used Tobacco 12/16/23 10:57 e-Cigarette/Vaping Use Never Used 12/16/23 10:57 Thrive Assessment: Date of Thrive Assessment Date Thrive assessed 02/14/23 12/16/23 10:57 Const Other: General: no acute distress and well developed Nutritional Appearance: well nourished Orientation/consciousness: patient oriented x3 [facility] Head: Yes normocephalic and Yes atraumatic Eyes General: appearance normal, both eyes and all related structures Pupils: Equal, round and reactive pupils present EOM: EOMs intact bilaterally Resp Effort & Inspection: normal respiratory effort Auscultation: clear to auscultation bilaterally Cardio Rate: regular rate Rhythm: regular rhythm Heart sounds: S1 normal heart sound present, S2 normal heart sound present, no gallops, no murmurs and no rubs GI Palpation (GI): No Abdominal aortic bruit present, Soft to palpation, nontender, No hepatosplenomegaly present and No Rebound tenderness present Auscultation: normal bowel sounds General: Yes no CVA tenderness Back/Spine/Pelvis Back: no CVA tenderness Cervical Spine: cervical ROM normal and No Cervical spine tenderness Thoracic/Lumbar Spine: thoraco-lumbar ROM normal, No pain with thoraco-lumbar ROM, No thoracic spinal tenderness and No lumbar spinal tenderness Extrem General: Yes normal to inspection, No edema and No calf tenderness Skin General: warm and dry. Normal skin color. Normal skin turgor Neuro General: patient oriented x3, gait normal and no focal neuro deficit Cranial nerves: Yes Equal, round and reactive pupils present Cognition (Neuro): normal cognition Gait exam (Neuro): Normal gait present Sensory Exam: No Sensory deficit (Neuro) Psych Appearance: grossly normal Affect: normal affect Attitude: cooperative Thought process: Normal thought process present Results AMB Hemoglobin A1c AMB Hemoglobin A1c 7.0 % Last Edit by Oswald Slater MA on 12/16/23 11:22 Results Reviewed Results Reviewed: Laboratory Last Values Hgb A1c (Clinic) 7.0 % (4.0-6.0) H 12/16/23 11:19 Coding Level of Care Code Est Pt Level 3 (00658) Diagnoses Type 2 diabetes mellitus E11.9 Assessment & Plan Assessment & Plan (1) Type 2 diabetes mellitus: Code(s): E11.9 - Type 2 diabetes mellitus without complications Category: Medical Plan: A1c today 7.0%, slightly above goal of less than 7.0%. Previous A1c was 7.0% Will increase Ozempic to 1 mg every week. Advised to administer as prescribed Continue to take metformin as prescribed ADA diet and routine exercise encouraged Follow-up in 3 months for an extended physical exam and diabetes or sooner with symptoms or concerns Verbalized understanding and agreed with the treatment plan Orders: Orders AMB Hemoglobin A1c Today Z13.9 - Encounter for screening, unspecified Medications: Changed From semaglutide (Ozempic) for 4 weeks 0.5 mg (0.736 mL) subcut QWEEK 4 weeks 2.944 mL 2RF To semaglutide (Ozempic) for 4 weeks 1 mg (1.472 mL) subcut QWEEK 4 weeks 5.888 mL 3RF
[2023-12-16 10:55] VITALS: BP 122/68; PULSE 96; RESP 14; TEMP 36.5; O2SAT 99; BMI 37.6
== END 2023-12-16 11:30 | disposition home or self-care (01) ==
PROVIDERS: PCP Nurse Practitioner Family; Visit Provider Nurse Practitioner Family
DX: E11.9 Type 2 diabetes mellitus without complications (principal); Z13.9 Encounter for screening, unspecified

== ENCOUNTER → 2023-12-16 10:49 | Outpatient (BNVA) | payer OTHER, SELFPAY | PROVIDERS: PCP Nurse Practitioner Family; Visit Provider Nurse Practitioner Family | DX: E11.9 Type 2 diabetes mellitus without complications (principal); Z79.85 Long-term (current) use of injectable non-insulin antidiabetic drugs | CPT/HCPCS: 83036; 99212 ==

== ENCOUNTER → 2023-12-31 08:06 | Outpatient (BNV) | payer OTHER, SELFPAY | PROVIDERS: PCP Nurse Practitioner Family; Visit Provider Internal Medicine | DX: R92.8 Other abnormal and inconclusive findings on diagnostic imaging of breast (principal) | CPT/HCPCS: 77049 ==

== ENCOUNTER 2023-12-31 08:23 | Outpatient (REF) | payer OTHER, SELFPAY ==
--- NOTE | ~2023-12-31 | MR_ITS ---
EXAMINATION: MR BREAST WITHOUT AND WITH CONTRAST, BILATERAL CLINICAL INFORMATION: High risk strong family history of breast cancer. Follow up from bilateral foci seen on prior breast MRI June 2022. COMPARISON: Breast MRI July 04 July. Mammogram and ultrasound June 28, 2022. March 13, 2023. TECHNIQUE: MR imaging of the breasts were performed using T1 and T2 and fat saturation techniques. Dynamic multiphase imaging was also performed after administration of intravenous gadolinium contrast agent. Computer generated 3-D reconstruction. FINDINGS: Study images are limited due to motion and MR artifacts. There are scattered areas of fibroglandular breast tissue with mild background enhancement. Previously seen bilateral areas of enhancing foci are less conspicuous compared with prior's and not significantly changed for 2 years. LEFT BREAST: There is no suspicious masses or areas of abnormal nonmass enhancement. There is no axillary or internal mammary lymphadenopathy. RIGHT BREAST: There is no suspicious masses or areas of abnormal nonmass enhancement. There is no axillary or internal mammary lymphadenopathy. Limited views of the chest and abdomen are unremarkable. MR/MR breast BI wo/w con IMPRESSION: No MR specific evidence of malignancy. ASSESSMENT: LEFT BREAST: BI-RADS 1-Negative RIGHT BREAST: BI-RADS 1-Negative RECOMMENDATIONS: Recommend annual breast MRI screening surveillance high risk. Electronically signed by: Negin Watkins DO 01/20/2024 09:47 AM EST
[2023-12-31] MEDS: gadobutroL 10 ML VIAL IVPUSH (09:17)
== END 2023-12-31 08:24 | disposition home or self-care (01) ==
LOC: HO.MRI 08:23
PROVIDERS: PCP Nurse Practitioner Family; Visit Provider Surgery
DX: R92.8 Other abnormal and inconclusive findings on diagnostic imaging of breast (principal); Z91.89 Other specified personal risk factors, not elsewhere classified
CPT/HCPCS: 77049; A9585

== ENCOUNTER 2024-01-20 08:59 | Outpatient (AMB) | payer OTHER, SELFPAY ==
--- NOTE | 2024-01-20 09:14 | A.OFFVIS_ITS ---
Vital Signs 01/20/24 09:27 Height 5 ft 7 in Weight 244 lb BMI 38.2 BP 148/86 H Blood Pressure Location Lt brachial Position Sitting Pulse 92 Intake Visit Reasons: 6 mth breast exam Intake Note: Patient is seen in office for 6 month follow up visit, breast exam. Pt c/o: denies any concerns or changes regarding the breast mm sched:03/15/24 MRI:12/31/23 Mobile Disc Jockey Required: No Nutritional Services Cook: Nutritional Services Cook Present Accompanied by: Self / Same As Patient Allergies No Known Allergies Allergy (Verified 01/20/24 09:26) HPI Comments Details: 43-year-old female patient returning for a high risk breast examination. Her family history includes a paternal grandmother and paternal aunt with breast cancer. She has a history of bilateral breast skin infections which improved after starting antibacterial soaps. She denies a previous history of breast surgery or breast cancer. She is , menarche at age 11, and is postmenopausal for greater than 20 years. The Tyrer-zick remaining lifetime risk of breast cancer was calculated at 26% placing her at high risk for breast cancer. She was placed on the high risk protocol including yearly mammogram and breast MRI alternating every 6 months, twice yearly clinical breast examination and monthly self examinations. Breast MRI on 06/28/2022 revealed bilateral areas of indeterminate enhancing at the 11:00 o'clock on the left breast and 02:00 o'clock on the right breast, both felt to be suspicious for malignancy. Bilateral mammogram and ultrasounds were recommended. These were obtained on 06/28/2022 and no correlate could be identified to the MR findings. As a result, six-month follow-up breast MRI was obtained on 12/19/2022 which revealed no suspicious masses or suspicious interval changes (BI-RADS 3 bilaterally). A follow-up mammogram was performed on 12/31/2023 however the radiologic reading is pending at the time of this dictation. Her last mammogram of 03/13/2023 revealed no mammographic evidence of malignancy (BI-RADS 1). Routine annual screening was recommended 1 year. She denies any new breast symptoms. [facility] Medical History ASCUS of cervix with negative high risk HPV Diabetes type 2, uncontrolled Surgical History Ovarian mass History of appendectomy Family History Father Prostate CA Cardiovascular disorder Mother No problems noted. 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 Gender identity: Female Cognitive needs: No Hearing needs: No Vision needs: No Female Reproductive History Menstrual Age of Menarche: 11 Review of Systems Const All systems reviewed & are unremarkable except as noted in HPI and below Denies chills, Denies fever(s), Denies headache(s) and Denies poor appetite ENT Denies dizziness and Denies headache(s) Card Denies chest pain, Denies rapid heart rate, Denies palpitations and Denies slow heart rate Resp Denies chest congestion, Denies cough, Denies pain on inspiration and Denies wheezing GI Denies abdominal pain, Denies bloating, Denies change in stool character, Denies constipation, Denies diarrhea, Denies nausea, Denies vomiting and Denies hematemesis Denies nipple discharge Musc Denies back pain, Denies arthralgias, Denies joint swelling and Denies numbness Skin/Breast Denies breast skin changes, Denies breast pain, Denies breast mass, Denies change in breast shape, Denies change in pigmentation, Denies nipple discharge, Denies erythema and Denies rash Neuro Denies dizziness, Denies headache(s) and Denies numbness Psych Denies anxiety and Denies depression Endo Denies palpitations Arie/Lymph Denies easy bleeding, Denies easy bruising and Denies lymphadenopathy Aller/Immun Denies wheezing Physical Exam Const General: cooperative, comfortable and well developed Nutritional Appearance: well nourished Orientation/consciousness: patient oriented x3 Neck Neck: Yes normal visual inspection, Yes no lymphadenopathy and Yes trachea midline Chest Other: Left breast: No skin change, no nipple retraction, no nipple discharge, no palpable mass, no enlarged lymph nodes. Right breast: No skin change, no nipple retraction, no nipple discharge, no palpable mass, no enlarged lymph nodes Resp Effort & Inspection: normal respiratory effort, no cough, no respiratory distress and no stridor Cardio Jugular venous distension: no JVD GI Inspection: Yes normal to inspection Skin General skin exam: dry skin Rashes: no rashes Neuro General: patient oriented x3 and no focal motor deficits Extrem General: Yes full ROM and Yes no clubbing, cyanosis or edema Psych Appearance: grossly normal Assessment & Plan Assessment & Plan (1) Abnormal MRI, breast: Code(s): R92.8 - Other abnormal and inconclusive findings on diagnostic imaging of breast Category: Medical (2) At high risk for breast cancer: Comment: On tamoxifen Code(s): Z91.89 - Other specified personal risk factors, not elsewhere classified Category: Medical Plan 43-year-old female patient felt to be at high risk for breast cancer presenting with a recent breast MRI which revealed bilateral areas of indeterminate enhancing felt to be suspicious. Subsequent mammogram and ultrasound however revealed no suspicious correlate. Six-month follow-up breast MRI on 12/19/2022 revealed no suspicious findings in either breast (BI-RADS 3). Short-term follow-up in 12 months was recommended with breast MRI. Mammogram of 03/13/2023 revealed no mammographic evidence of malignancy (BI-RADS 1). We are awaiting the results of her December 2023 breast MRI. She is now scheduled for her yearly mammogram on 03/15/2024. Examination today revealed no suspicious findings in either breast. I recommended a follow-up examination in 6 months, sooner p.r.n.. Coding Level of Care Code Est Pt Level 3 (21498) Complex EM visit Add On G2211 Diagnoses Abnormal MRI, breast R92.8 At high risk for breast cancer Z91.89
[2024-01-20 09:27] VITALS: BP 148/86; PULSE 92; BMI 38.2
== END 2024-01-20 09:40 | disposition home or self-care (01) ==
LOC: HO.HGS 08:59
PROVIDERS: PCP Nurse Practitioner Family; Visit Provider Surgery
DX: R92.8 Other abnormal and inconclusive findings on diagnostic imaging of breast (principal); Z91.89 Other specified personal risk factors, not elsewhere classified
CPT/HCPCS: 99213; G2211

== ENCOUNTER → 2024-01-20 08:59 | Outpatient (BNVA) | payer OTHER, SELFPAY | PROVIDERS: PCP Nurse Practitioner Family; Visit Provider Surgery | DX: R92.8 Other abnormal and inconclusive findings on diagnostic imaging of breast (principal); Z91.89 Other specified personal risk factors, not elsewhere classified | CPT/HCPCS: 99212 ==

== ENCOUNTER 2024-02-19 10:03 | Outpatient (AMB) | payer OTHER, SELFPAY ==
--- NOTE | 2024-02-19 10:31 | A.OFFPC_ITS ---
Vital Signs 02/19/24 10:37 Height 5 ft 7 in Weight 241 lb 8 oz BMI 37.8 BP 110/70 Blood Pressure Location Lt brachial Position Sitting Respiration 14 Pulse 95 Pulse Source Pulse Oximeter Temp 97.5 F Temp Source Oral Pulse Oximetry (%) 97 Oxygen Delivery Method Room Air Intake Visit Reasons: 3 mos CPE, DM Intake Note: CPE /DM F/U Allergies No Known Allergies Allergy (Verified 02/19/24 10:53) Medication List - Last Reconciled 02/19/24 by Amy Eli CNP atorvastatin 10 mg PO BEDTIME 90 days calcium carbonate-vitamin D3 600 mg-5 mcg (200 unit) 1 tab PO BID levocetirizine (Xyzal) 5 mg PO DAILY PRN metformin 850 mg PO TID multivitamin 1 tab PO DAILY semaglutide 1 mg (0.75 mL) subcut QWEEK 4 weeks tamoxifen 20 mg PO DAILY Tobacco use date assessed: 02/19/24 Dental Screening Dental Screen Date: 02/19/24 Did you have a dental visit in the last 12 months?: Yes Did you have a dental problem in the last 6 months where you did not have access to dental care?: No Was dental information given to patient?: Patient has dentist HPI HPI Comments History of Present Illness Details The patient is a 43-year-old female presenting with a comprehensive he alth examination, focusing on existing chronic conditions and preventive care. She has a significant medical history of Type 2 Diabetes Mellitus, for which she is currently on Metformin and Semaglutide, and undergoes regular monitoring of her blood glucose levels and hemoglobin A1c. She also exhibits obesity, marked by a recent weight of 241 pounds, though she successfully reduced her weight from 246 pounds last month. This is managed through exercise and dietary changes, including a low-carbohydrate diet, which she reports has improved her quality of life despite the challenge of diet alterations. Her BMI currently stands at 37.8. The patient also has hyperlipidemia, managed with Atorvastatin, with plans for upcoming lipid profile testing before the next follow-up visit. Additionally, she has a family history of breast cancer and is under oncological observation, taking Tamoxifen as a preventive measure. Her last mammogram was conducted on March 13, 2023, and she has an upcoming one scheduled for March 2024. Her last Pap smear was in March 2023, with the next one also scheduled for March 2024. She underwent a diabetic retinal exam a year ago, with the next appointment scheduled for April 2024. Health Maintenance - Last mammogram on March 13, 2023; n ext scheduled for March 2024 - Last Pap smear in March 31, 2023; ne xt scheduled for March 2024 - Diabetic retinal exam completed a year ago; follow-up in April 2024 - Received influenza and COVID boosters - Tetanus booster recommended due to mor e than 10 years since last vaccination. She will receive the Tdap vaccine next visit. - Dietary modifications include a carboh ydrate-restricted diet - Exercise regimen includes treadmill, b joana, and elliptical workouts with gabriela espinal - Regular dental check-up two months ago with no issues reported - Abstains from smoking, vaping, alcohol , and recreational drugs Social History - Engages in regular physical exercise t hree times a week, aiming to increase to four times, and eventually daily - Committed to weight management through diet and exercise interventions - Abstains from smoking, vaping, alcohol , and recreational drug usage - Was seen by a search engineer for diabetes m anagement a long time ago - Prioritized dental health due to a fam miller history of dental issues [facility] Medical History ASCUS of cervix with negative high risk HPV Diabetes type 2, uncontrolled Surgical History Ovarian mass History of appendectomy Family History Father Prostate CA Cardiovascular disorder Mother No problems noted. 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 1. Little interest or pleasure in doing things: not at all 2. Feeling down, depressed, or hopeless: not at all 3. Trouble falling or staying asleep, or sleeping too much: not at all 4. Feeling tired or having little energy: not at all 5. Poor appetite or overeating: not at all 6. Feeling bad about yourself - or that you are a failure or have let yourself or your family down: not at all 7. Trouble concentrating on things, such as reading the newspaper or watching television: not at all 8. Moving or speaking so slowly that other people could have noticed. Or the opposite - being so fidgety or restless that you have been moving around a lot more than usual: not at all 9. Thoughts that you would be better off or of hurting yourself in some way: not at all Total score: 0 Depression Screening Interpretation: Negative Depression Screening Done: Yes Source: Developed by Drs. Jese Hinson, Daysi Au, Con Andujar and colleagues, with an educational raymundo from [email or web address]. Thrive Questionnaire Date Thrive assessed: 02/17/24 I am a: Patient What is your living situation today?: I have a steady place to live Within the past 12 months, did the food you bought not last and you didn't have the money to get more?: Never true Within the past 12 months, did you worry whether your food would run out before you got money to buy more?: Never true Do you have trouble paying for medicines?: No Do you have trouble getting transportation to medical appointments?: No Do you have trouble paying your heating and electricity bill?: No Do you have trouble taking care of your child, family member or friend?: No Do you have trouble with day-to-day activities such as bathing, preparing meals, shopping, managing finances, etc.?: No Are you currently unemployed and looking for a job?: No Are you interested in more education?: No Please select the resources that you would like help with: None Currently or been in a relationship where the following occur: No concerns reported THRIVE Score: 0 AUDIT C Alcohol Use Questionnaire (AUDIT-C) 1. How often do you have a drink containing alcohol?: Monthly or less 2. How many drinks containing alcohol do you have on a typical day when you are drinking?: 1 or 2 3. How often do you have six or more drinks on one occasion?: Never Total Score: 1 Score Reviewed/Action Taken: Yes COLLEEN-7 AMB Questionnaire COLLEEN-7 Date COLLEEN - 7 assessed: 02/14/23 Feeling nervous, anxious, or on edge: 0 = Not at all Not being able to stop or control worryin = Not at all Worrying too much about different things: 0 = Not at all Trouble relaxin = Not at all Being so restless that it is hard to sit still: 0 = Not at all Becoming easily annoyed or irritable: 0 = Not at all Feeling afraid as if something awful might happen: 0 = Not at all Total COLLEEN-7 score (0-4 normal; 5-9 mild; 10-14 moderate; 15-21 severe): 0 Source: Developed by Drs. Jese Hinson, Daysi Au, Con Andujar and colleagues, with an educational raymundo from [email or web address]. Review of Systems Const Details: Denies chills, Denies fatigue, Denies fever(s), Denies headache(s) and Denies weakness HEENT Denies change in vision, Denies dizziness, Denies headache(s), Denies hearing loss, Denies nasal congestion, Denies sinus pain, Denies sinus pressure and Denies sore throat Card Denies chest pain, Denies lightheadedness, Denies dyspnea and Denies other (palpitations) Resp Denies cough, Denies dyspnea and Denies wheezing GI Denies abdominal pain, Denies melena, Denies hematochezia, Denies change in bowel habits, Denies dyspepsia and Denies nausea Denies hematuria and Denies dysuria Musc Denies abnormal gait, Denies myalgias, Denies arthralgias, Denies numbness and Denies tingling Skin/Breast Denies rash, Denies unusual bruising and Denies wounds Neuro Denies abnormal gait, Denies dizziness, Denies headache(s), Denies memory loss, Denies numbness, Denies Sensory deficit (Neuro), Denies tingling and Denies weakness Psych Denies anxiety, Denies depression and Denies memory loss Endo Denies cold intolerance, Denies fatigue, Denies heat intolerance, Denies polydipsia and Denies polyuria Arie/Lymph Denies easy bleeding and Denies easy bruising Aller/Immun Denies wheezing Physical exam (Primary Care) Vital Signs: Last Vital Signs Temp 97.5 F 02/19/24 10:37 Pulse 95 02/19/24 10:37 Resp 14 02/19/24 10:37 BP 110/70 02/19/24 10:37 Pulse Ox 97 02/19/24 10:37 Oxygen Delivery Method Room Air 02/19/24 10:37 BMI result Body Mass Index 37.8 Tobacco/Smoking Status: Tobacco use Status Tobacco use date assessed 02/19/24 02/19/24 10:40 Patient Tobacco Use Status Never used Tobacco 02/19/24 10:31 e-Cigarette/Vaping Use Never Used 02/19/24 10:31 PHQ-9: PHQ-9 Score PHQ-9: Total score 0 02/19/24 10:31 Depression Screening Interpretation: Negative Thrive Assessment: Date of Thrive Assessment Date Thrive assessed 02/17/24 02/19/24 10:31 Currently or been in a relationship where the following occur: No concerns reported Const Other: General: no acute distress, well developed, alert and awake Nutritional Appearance: well nourished Orientation/consciousness: patient oriented x3 HENMT Head: Yes normocephalic and Yes atraumatic Ears: hearing grossly normal bilaterally and TM's normal bilaterally General nose exam: Normal external nose present and Normal nares present Mouth: Normal oral and palatal mucosa present and moist mucous membranes Teeth and gingiva: dentition normal Throat: Yes oropharynx normal Eyes Pupils: Equal, round and reactive pupils present and Pupil accommodation reflex normal EOM: EOMs intact bilaterally Neck Neck: Yes normal visual inspection, Yes no lymphadenopathy and Yes trachea midline Thyroid: Thyroid normal Carotids: no bruits Lymphatic: no lymphadenopathy noted Chest Chest palpation & inspection: normal inspection of the chest Resp Effort & Inspection: normal respiratory effort Auscultation: clear to auscultation bilaterally Cardio Rate: regular rate Rhythm: regular rhythm Heart sounds: S1 normal heart sound present, S2 normal heart sound present, no gallops, no murmurs and no rubs Bruits: no abdominal aortic bruits and no carotid bruits GI Palpation (GI): No Abdominal aortic bruit present, Soft to palpation, nontender, No hepatosplenomegaly present and No Rebound tenderness present Auscultation: normal bowel sounds General: Yes no CVA tenderness Back/Spine/Pelvis Back: no CVA tenderness Cervical Spine: cervical ROM normal and No Cervical spine tenderness Thoracic/Lumbar Spine: thoraco-lumbar ROM normal, No pain with thoraco-lumbar R OM, No thoracic spinal tenderness and No lumbar spinal tenderness Skin General: warm and dry. Normal skin color. Normal skin turgor Lesions: no lesions Rashes: no rashes Trauma: no lacerations or abrasions Wounds: no wounds Nails: normal Neuro General: patient oriented x3, gait normal and CN's II-XI intact bilaterally Cranial nerves: Yes Equal, round and reactive pupils present Cognition (Neuro): normal cognition Gait exam (Neuro): Normal gait present Motor exam (neuro): 5/5 motor strength present throughout Sensory Exam: No Sensory deficit (Neuro) Deep tendon reflexes (DTR's): Right patellar reflex intensity grade: 2+ and Left patellar reflex intensity grade: 2+ Extrem General: Yes normal to inspection, No edema and No calf tenderness Psych Appearance: grossly normal Affect: normal affect Attitude: cooperative Thought process: Normal thought process present Coding Level of Care Code Est Pt Prev Care 40-64y(29741) Diagnoses Normal physical exam Z00.00 Obesity (BMI 30-39.9) E66.9 Hyperlipidemia E78.5 At high risk for breast cancer Z91.89 Type 2 diabetes mellitus E11.9 Assessment & Plan Assessment & Plan (1) Normal physical exam: Code(s): Z00.00 - Encounter for general adult medical examination without abnormal findings Category: Medical Plan: No significant functional limitation noted. (2) Obesity (BMI 30-39.9): Code(s): E66.9 - Obesity, unspecified Category: Medical Plan: Support ongoing lifestyle modifications with diet and exercise; continue work with personal care attendant, and assess weight trend. (3) Hyperlipidemia: Code(s): E78.5 - Hyperlipidemia, unspecified Category: Medical Plan: Perform lipid panel before the next visit to evaluate the efficacy of Atorvastatin. (4) At high risk for breast cancer: Comment: On tamoxifen Code(s): Z91.89 - Other specified personal risk factors, not elsewhere classified Category: Medical Plan: Continuous follow-up with oncology; adherence to Tamoxifen. Ensure timely scheduling of mammograms. (5) Type 2 diabetes mellitus: Code(s): E11.9 - Type 2 diabetes mellitus without complications Category: Medical Plan: Continuation of Metformin and Semaglutide, with emphasis on maintaining blood glucose levels within target range. Follow-up in one month to reassess A1c. Plan Discussed current management of chronic conditions, emphasizing Type 2 Diabetes Mellitus, obesity, and hyperlipidemia. I reviewed the effectiveness of medication and lifestyle changes in controlling these conditions, and we reaffirmed the importance of regular monitoring and preventive measures, especially given her family history of breast cancer. We also discussed follow- up care, including scheduled appointments, healthcare screenings, and lifestyle management strategies to continue mitigating health risks. Orders: Orders Lipid Panel Today E78.5 - Hyperlipidemia, unspecified Patient Instructions: - Continue taking prescribed medications as directed - Maintain carbohydrate-restricted diet and engage in regular exercise - Obtain cholesterol lipid panel 10-12 hours after fasting before the next visit - Schedule and attend all recommended screening appointments and follow-ups - Receive tetanus booster today - Return for follow-up in one month for reassessment of diabetes management and cholesterol results Patient was informed and verbally consented to the use of an ambient scribe for clinic note documentation during this visit.
[2024-02-19 10:37] VITALS: BP 110/70; PULSE 95; RESP 14; TEMP 36.4; O2SAT 97; BMI 37.8
== END 2024-02-19 11:06 | disposition home or self-care (01) ==
PROVIDERS: PCP Nurse Practitioner Family; Visit Provider Nurse Practitioner Family
DX: Z00.00 Encounter for general adult medical examination without abnormal findings (principal); E11.9 Type 2 diabetes mellitus without complications; E66.9 Obesity, unspecified; Z68.37 Body mass index [BMI] 37.0-37.9, adult; E78.5 Hyperlipidemia, unspecified; Z91.89 Other specified personal risk factors, not elsewhere classified

== ENCOUNTER → 2024-02-19 10:03 | Outpatient (BNVA) | payer OTHER, SELFPAY | PROVIDERS: PCP Nurse Practitioner Family; Visit Provider Nurse Practitioner Family | DX: Z00.00 Encounter for general adult medical examination without abnormal findings (principal); E66.9 Obesity, unspecified; Z68.37 Body mass index [BMI] 37.0-37.9, adult; E78.5 Hyperlipidemia, unspecified; E11.9 Type 2 diabetes mellitus without complications; Z91.89 Other specified personal risk factors, not elsewhere classified; Z71.3 Dietary counseling and surveillance | CPT/HCPCS: 96127; 99396 ==

== ENCOUNTER 2024-03-15 10:46 | Outpatient (REF) | payer OTHER, SELFPAY | END 2024-03-15 10:47 | disposition home or self-care (01) | LOC: HO.MAMMO 10:46 | PROVIDERS: PCP Nurse Practitioner Family | DX: Z12.31 Encounter for screening mammogram for malignant neoplasm of breast (principal) | CPT/HCPCS: 77063; 77067 ==

== ENCOUNTER → 2024-03-15 11:00 | Outpatient (BNV) | payer OTHER, SELFPAY | PROVIDERS: PCP Nurse Practitioner Family; Visit Provider Internal Medicine | DX: Z12.31 Encounter for screening mammogram for malignant neoplasm of breast (principal) | CPT/HCPCS: 77063; 77067 ==

== ENCOUNTER 2024-07-23 08:48 | Outpatient (AMB) | payer OTHER, SELFPAY ==
--- NOTE | 2024-07-23 09:12 | A.OFFVIS_ITS ---
Vital Signs 07/23/24 09:18 Height 5 ft 7 in Weight 250 lb BMI 39.2 BP 141/84 H Blood Pressure Location Lt brachial Pulse 99 Intake Visit Reasons: 6 month breast exam Intake Note: Patient is seen in office for 6 month follow up visit, breast exam. 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 Her family history includes a paternal grandmother and paternal aunt with breast cancer. She has a history of bilateral breast skin infections which improved after starting antibacterial soaps. She denies a previous history of breast surgery or breast cancer. She is , menarche at age 11, and is postmenopausal for greater than 20 years. The Tyrer-Cuzick remaining lifetime risk of breast cancer was calculated at 26% placing her at high risk for breast cancer. She was placed on the high risk protocol including yearly mammogram and breast MRI alternating every 6 months, twice yearly clinical breast examination and monthly self examinations. Breast MRI on 06/28/2022 revealed bilateral areas of indeterminate enhancing at the 11:00 o'clock on the left breast and 02:00 o'clock on the right breast, both felt to be suspicious for malignancy. Bilateral mammogram and ultrasounds were recommended. These were obtained on 06/28/2022 and no correlate could be identified to the MR findings. As a result, six-month follow-up breast MRI was obtained on 12/19/2022 which revealed no suspicious masses or suspicious interval changes (BI-RADS 3 bilaterally). Her most recent MRI performed on 12/31/2023 revealed no MR specific evidence of malignancy (BI-RADS 1 bilateral). Mammogram of 03/15/2024 revealed no mammographic evidence of malignancy (BI-RADS 1). She is scheduled for a routine annual mammogram on 03/22/2025. [facility] Medical History ASCUS of cervix with negative high risk HPV Diabetes type 2, uncontrolled Surgical History Ovarian mass History of appendectomy Family History Father Prostate CA Cardiovascular disorder Mother No problems noted. 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 Sexual orientation: Straight/Heterosexual Gender identity: Female Cognitive needs: No Hearing needs: No Vision needs: No Female Reproductive History Menstrual Age of Menarche: 11 Review of Systems Const All systems reviewed & are unremarkable except as noted in HPI and below Physical Exam Vital Signs: Last Vital Signs Pulse 99 07/23/24 09:18 BP 141/84 H 07/23/24 09:18 BMI result Body Mass Index 39.2 Const General: cooperative, comfortable and well developed Nutritional Appearance: well nourished Orientation/consciousness: patient oriented x3 Neck Neck: Yes normal visual inspection, Yes no lymphadenopathy and Yes trachea midline Chest Other: Left breast: No skin change, no nipple retraction, no nipple discharge, no palpable mass, no enlarged lymph nodes. Right breast: No skin change, no nipple retraction, no nipple discharge, no palpable mass, no enlarged lymph nodes Resp Effort & Inspection: normal respiratory effort, no cough, no respiratory distress and no stridor Cardio Jugular venous distension: no JVD GI Inspection: Yes normal to inspection Skin General skin exam: dry skin Rashes: no rashes Neuro General: patient oriented x3 and no focal motor deficits Extrem General: Yes full ROM and Yes no clubbing, cyanosis or edema Psych Appearance: grossly normal Assessment & Plan Assessment & Plan (1) Abnormal MRI, breast: Code(s): R92.8 - Other abnormal and inconclusive findings on diagnostic imaging of breast Category: Medical (2) At high risk for breast cancer: Comment: On tamoxifen Code(s): Z91.89 - Other specified personal risk factors, not elsewhere classified Category: Medical Plan 44-year-old female patient felt to be at high risk for breast cancer returning for a routine breast examination. She denies any new breast symptoms in either breast examination today revealed no suspicious findings. Her most recent mammogram of 03/15/2024 revealed no mammographic evidence of malignancy (BI-RADS 1. In addition her most recent MRI performed on 12/31/2023 revealed no MR specific evidence of malignancy (BI-RADS 1 bilaterally). She will continue her high-risk screening with a MRI in December 2024 as well as her previously scheduled mammogram of 03/22/2025. She will return in 6 months for routine breast examination. Orders: Orders MR breast BI wo/w con 12/31/24 R92.8 - Other abnormal and inconclusive findings on diagnostic imaging of breast, Z91.89 - Other specified personal risk factors, not elsewhere classified Coding Level of Care Code Est Pt Level 3 (90822) Complex EM visit Add On G2211 Diagnoses Abnormal MRI, breast R92.8 At high risk for breast cancer Z91.89
[2024-07-23 09:18] VITALS: BP 141/84; PULSE 99; BMI 39.2
== END 2024-07-23 09:29 | disposition home or self-care (01) ==
LOC: HO.HGS 08:48
PROVIDERS: PCP Nurse Practitioner Family; Visit Provider Surgery
DX: R92.8 Other abnormal and inconclusive findings on diagnostic imaging of breast (principal); Z91.89 Other specified personal risk factors, not elsewhere classified
CPT/HCPCS: 99213; G2211

== ENCOUNTER → 2024-07-23 08:48 | Outpatient (BNVA) | payer OTHER, SELFPAY | PROVIDERS: PCP Nurse Practitioner Family; Visit Provider Surgery | DX: R92.8 Other abnormal and inconclusive findings on diagnostic imaging of breast (principal); Z91.89 Other specified personal risk factors, not elsewhere classified | CPT/HCPCS: 99212 ==

== ENCOUNTER 2024-08-16 11:41 | Outpatient (REF) | payer OTHER, SELFPAY ==
[2024-08-16 13:43] LABS: Cholesterol 106 mg/dL (<200); HDL Cholesterol 37 mg/dL (>40); LDL Cholesterol Calculated 46 mg/dL (<100); Triglycerides 117 mg/dL (<150)
== END 2024-08-16 11:42 | disposition home or self-care (01) ==
LOC: HO.HMGCLDS 11:41
PROVIDERS: PCP Nurse Practitioner Family; Visit Provider Nurse Practitioner Family
DX: E78.5 Hyperlipidemia, unspecified (principal)
CPT/HCPCS: 36415; 80061

== ENCOUNTER 2024-08-25 08:18 | Outpatient (AMB) | payer OTHER, SELFPAY ==
--- NOTE | 2024-08-25 08:21 | MHC.OFFVIS ---
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 No complaints. Last Pap/HPV was negative in 04/09 Last Mammogram was BI-RADS 1 in 03/09, breast MRI in 01/07 was bilaterally BI-RADS 1 [facility] Medical History (Updated 08/25/24 @ 08:41 by Shahab Gamble MD) ASCUS of cervix with negative high risk HPV Diabetes type 2, uncontrolled Surgical History Ovarian mass History of appendectomy Family History Father Prostate CA Cardiovascular disorder Mother No problems noted. 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[employer] Sexual orientation: Straight/Heterosexual Gender identity: Female Cognitive needs: No Hearing needs: No Vision needs: No Female Reproductive History Menstrual Age of Menarche: 11 Date of last menstrual period: 07/27/24 Total pregnancies: 0 Number of Living Children: 0 Date of last pap smear: 03/31/23 Date of Mammogram: 03/15/24 Review of Systems Const All systems reviewed & are unremarkable except as noted in HPI and below Card Reports as per HPI Resp Reports as per HPI GI Reports as per HPI and Reports no additional complaints Reports as per HPI Physical Exam Vital Signs: Last Vital Signs BP 124/70 08/25/24 08:22 BMI result Body Mass Index 39.2 Const General: cooperative, healthy appearing and comfortable Chest Chest palpation & inspection: normal inspection of the chest and normal palpation of entire chest wall Breast/axilla inspection: normal inspection of the breasts and normal inspection of the axillae Breast/axilla palpation: normal palpation of the breasts, normal palpation of the axillae and no axillary lymphadenopathy Resp Effort & Inspection: normal respiratory effort Auscultation: clear to auscultation bilaterally Percussion: percussion normal Cardio Palpation: normal PMI Rate: regular rate Rhythm: regular rhythm Heart sounds: no murmurs and no rubs Peripheral pulses: Peripheral pulses 2+ throughout GI Inspection: Yes normal to inspection Palpation (GI): Soft to palpation, nontender, no guarding, not rigid and No hepatosplenomegaly present Percussion: Yes normal to percussion Auscultation: normal bowel sounds Rectal Exam - Female: deferred General: Yes bladder normal to palpation External Female Exam: No lesion Speculum Exam - Vagina: normal appearance of the vagina, normal palpation, normal vaginal discharge and not erythematous Speculum Exam - Cervix: normal appearance of the cervix and normal palpation Bimanual exam- vagina & uterus: normal bimanual exam, normal palpation, uterine size normal, bladder normal to palpation, consistency normal and normal palpation Bimanual Exam- Adnexa, other: normal adnexae, no masses and no tenderness Assessment & Plan Assessment & Plan (1) Well woman exam: Comment: ASCUS HPV negative in 03/06 04/05 for co testing negative Code(s): Z01.419 - Encounter for gynecological examination (general) (routine) without abnormal findings Category: Medical Plan: Cotesting not indicated this year. Mammogram schedule. Counseled the patient about the recommended dietary allowance of 1000 mg of Calcium & 600 IU of vitamin D. The patient was instructed to perform monthly self-breast exams and to schedule an annual exam in a year; All questions answered and the patient verbalized understanding. Instructed the patient to schedule annual exam in a year (2) At high risk for breast cancer: Comment: On tamoxifen Code(s): Z91.89 - Other specified personal risk factors, not elsewhere classified Category: Medical Plan: The patient is being followed up by Dr. Chand regarding her high-risk breast cancer status appointment schedule prior to her next breast MRI due date Coding Level of Care Code Est Pt Prev Care 40-64y(27111) Diagnoses Well woman exam Z01.419 At high risk for breast cancer Z91.89
[2024-08-25 08:22] VITALS: BP 124/70; BMI 39.2
== END 2024-08-25 08:47 | disposition home or self-care (01) ==
LOC: HO.HWS 08:19
PROVIDERS: PCP Nurse Practitioner Family; Visit Provider Obstetrics & Gynecology
DX: Z01.419 Encounter for gynecological examination (general) (routine) without abnormal findings (principal); Z91.89 Other specified personal risk factors, not elsewhere classified
CPT/HCPCS: 99396; 99459

== ENCOUNTER → 2024-08-25 08:18 | Outpatient (BNVA) | payer OTHER, SELFPAY | PROVIDERS: PCP Nurse Practitioner Family; Visit Provider Obstetrics & Gynecology | DX: Z01.419 Encounter for gynecological examination (general) (routine) without abnormal findings (principal); Z91.89 Other specified personal risk factors, not elsewhere classified | CPT/HCPCS: 99396; 99459 ==

== ENCOUNTER 2024-10-19 12:50 | Outpatient (AMB) | payer OTHER, SELFPAY ==
--- NOTE | 2024-10-19 12:55 | A.OFFPC_ITS ---
Vital Signs 10/19/24 13:02 Height 5 ft 7 in Weight 244 lb 2 oz BMI 38.2 BP 142/82 H Blood Pressure Location Lt brachial Position Sitting Respiration 18 Pulse 89 Pulse Source Pulse Oximeter Temp 97.8 F Temp Source Temporal Artery Scan Pulse Oximetry (%) 98 Oxygen Delivery Method Room Air Intake Visit Reasons: Chronic disease and medication management Intake Note: Polo presents in the office today for medication management. Allergies No Known Allergies Allergy (Verified 10/19/24 13:23) Medication List - Last Reconciled 10/19/24 by Amy Eli CNP atorvastatin 10 mg PO BEDTIME 90 days calcium carbonate-vitamin D3 600 mg-5 mcg (200 unit) 1 tab PO BID levocetirizine (Xyzal) 5 mg PO DAILY PRN metformin 850 mg PO TID multivitamin 1 tab PO DAILY semaglutide 1 mg (0.75 mL) subcut QWEEK 4 weeks tamoxifen 20 mg PO DAILY Tobacco use date assessed: 10/19/24 Dental Screening Dental Screen Date: 10/19/24 Did you have a dental visit in the last 12 months?: Yes Did you have a dental problem in the last 6 months where you did not have access to dental care?: No Was dental information given to patient?: Patient has dentist HPI HPI Comments History of Present Illness Details 44-year-old female presents for diabetes and hyperlipidemia follow-up. Her last office visit was 8 months ago. She admits to taking her medications as prescribed without adverse reactions. She notes that she has been making healthy lifestyle changes, however, she has been eating frequently at restaurants. She offers no complaints and denies acute symptoms at this time. [facility] Medical History (Updated 10/19/24 @ 13:36 by Amy Eli CNP) ASCUS of cervix with negative high risk HPV Diabetes type 2, uncontrolled Surgical History Ovarian mass History of appendectomy Family History Father Prostate CA Cardiovascular disorder Mother No problems noted. 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 1. Little interest or pleasure in doing things: not at all 2. Feeling down, depressed, or hopeless: not at all 3. Trouble falling or staying asleep, or sleeping too much: not at all 4. Feeling tired or having little energy: not at all 5. Poor appetite or overeating: not at all 6. Feeling bad about yourself - or that you are a failure or have let yourself or your family down: not at all 7. Trouble concentrating on things, such as reading the newspaper or watching television: not at all 8. Moving or speaking so slowly that other people could have noticed. Or the opposite - being so fidgety or restless that you have been moving around a lot more than usual: not at all 9. Thoughts that you would be better off or of hurting yourself in some way: not at all Total score: 0 Depression Screening Interpretation: Negative Depression Screening Done: Yes 45339 - PHQ-9 Billing: Yes Source: Developed by Drs. Jese Hinson, Daysi Au, Con Andujar and colleagues, with an educational raymundo from [employer] Thrive Questionnaire Date Thrive assessed: 10/19/24 I am a: Patient What is your living situation today?: I have a steady place to live Within the past 12 months, did the food you bought not last and you didn't have the money to get more?: Never true Within the past 12 months, did you worry whether your food would run out before you got money to buy more?: Never true Do you have trouble paying for medicines?: No Do you have trouble getting transportation to medical appointments?: No Do you have trouble paying your heating and electricity bill?: No Do you have trouble taking care of your child, family member or friend?: No Do you have trouble with day-to-day activities such as bathing, preparing meals, shopping, managing finances, etc.?: No Are you currently unemployed and looking for a job?: No Are you interested in more education?: No Please select the resources that you would like help with: None Currently or been in a relationship where the following occur: No concerns reported THRIVE Score: 0 AUDIT C Alcohol Use Questionnaire (AUDIT-C) 1. How often do you have a drink containing alcohol?: Monthly or less 2. How many drinks containing alcohol do you have on a typical day when you are drinking?: 1 or 2 3. How often do you have six or more drinks on one occasion?: Never Total Score: 1 Score Reviewed/Action Taken: Yes COLLEEN-7 AMB Questionnaire COLLEEN-7 Date COLLEEN - 7 assessed: 10/19/24 Feeling nervous, anxious, or on edge: 0 = Not at all Not being able to stop or control worryin = Not at all Worrying too much about different things: 0 = Not at all Trouble relaxin = Not at all Being so restless that it is hard to sit still: 0 = Not at all Becoming easily annoyed or irritable: 0 = Not at all Feeling afraid as if something awful might happen: 0 = Not at all Total COLLEEN-7 score (0-4 normal; 5-9 mild; 10-14 moderate; 15-21 severe): 0 Source: Developed by Drs. Jese Hinson, Daysi Au, Con Andujar and colleagues, with an educational raymundo from [employer]). COLLEEN-7 Assessment Billing COLLEEN-7 Assessment Tool: COLLEEN-7 Assessment 84181 Review of Systems Const Details: Const Denies chills, Denies fatigue, Denies fever(s), Denies headache(s) and Denies weakness ENT Denies dizziness and Denies headache(s) Card Denies chest pain, Denies lightheadedness, Denies dyspnea and Denies other (Palpitations) Resp Denies cough, Denies dyspnea, Denies wheezing and Denies other ( shortness of breath) GI Denies abdominal pain, Denies melena, Denies hematochezia, Denies change in bowel habits, Denies dyspepsia and Denies nausea Denies hematuria and Denies dysuria Musc Denies abnormal gait, Denies myalgias, Denies arthralgias, Denies numbness and Denies tingling Skin/Breast Denies rash, Denies unusual bruising and Denies wounds Neuro Denies abnormal gait, Denies dizziness, Denies headache(s), Denies memory loss, Denies numbness, Denies Sensory deficit (Neuro), Denies tingling and Denies weakness Psych Denies anxiety, Denies depression, Denies memory loss Endo Denies cold intolerance, Denies fatigue, Denies heat intolerance, Denies polydipsia and Denies polyuria Aller/Immun Denies wheezing Physical exam (Primary Care) Vital Signs: Last Vital Signs Temp 97.8 F 10/19/24 13:02 Pulse 89 10/19/24 13:02 Resp 18 10/19/24 13:02 BP 142/82 H 10/19/24 13:02 Pulse Ox 98 10/19/24 13:02 Oxygen Delivery Method Room Air 10/19/24 13:02 BMI result Body Mass Index 38.2 Tobacco/Smoking Status: Tobacco use Status Tobacco use date assessed 10/19/24 10/19/24 13:01 Patient Tobacco Use Status Never used Tobacco 10/19/24 13:01 e-Cigarette/Vaping Use Never Used 10/19/24 13:01 PHQ-9: PHQ-9 Score PHQ-9: Total score 0 10/19/24 12:56 Depression Screening Interpretation: Negative Thrive Assessment: Date of Thrive Assessment Date Thrive assessed 10/19/24 10/19/24 12:56 Currently or been in a relationship where the following occur: No concerns reported Const Other: General: no acute distress and well developed Nutritional Appearance: well nourished Orientation/consciousness: patient oriented x3 HENMT Head: Yes normocephalic and Yes atraumatic Eyes General: appearance normal, both eyes and all related structures Pupils: Equal, round and reactive pupils present EOM: EOMs intact bilaterally Resp Effort & Inspection: normal respiratory effort Auscultation: clear to auscultation bilaterally Cardio Rate: regular rate Rhythm: regular rhythm Heart sounds: S1 normal heart sound present, S2 normal heart sound present, no gallops, no murmurs and no rubs GI Palpation (GI): No Abdominal aortic bruit present, Soft to palpation, nontender, No hepatosplenomegaly present and No Rebound tenderness present Auscultation: normal bowel sounds General: Yes no CVA tenderness Back/Spine/Pelvis Back: no CVA tenderness Cervical Spine: cervical ROM normal and No Cervical spine tenderness Thoracic/Lumbar Spine: thoraco-lumbar ROM normal, No pain with thoraco-lumbar ROM, No thoracic spinal tenderness and No lumbar spinal tenderness Extrem General: Yes normal to inspection, No edema and No calf tenderness Skin General: warm and dry. Normal skin color. Normal skin turgor Neuro General: patient oriented x3, gait normal and no focal neuro deficit Cranial nerves: Yes Equal, round and reactive pupils present Cognition (Neuro): normal cognition Gait exam (Neuro): Normal gait present Sensory Exam: No Sensory deficit (Neuro) Psych Appearance: grossly normal Affect: normal affect Attitude: cooperative Thought process: Normal thought process present Results AMB Hemoglobin A1c AMB Hemoglobin A1c 6.5 % Last Edit by Torrie Kay MA on 10/19/24 13:15 Results Reviewed Results Reviewed: Laboratory Last Values Hgb A1c (Clinic) 6.5 % (4.0-6.0) H 10/19/24 13:08 Coding Level of Care Code Est Pt Level 3 (13738) Diagnoses Type 2 diabetes mellitus E11.9 Hyperlipidemia E78.5 Elevated blood pressure reading without diagnosis of hypertension R03.0 Additional Codes COLLEEN-7 Assessment Billing - COLLEEN-7 Assessment Tool: COLLEEN-7 Assessment 25947 ([id number]) PHQ-9 - 57253 - PHQ-9 Billing: Yes ([id number]) Assessment & Plan Assessment & Plan (1) Type 2 diabetes mellitus: Code(s): E11.9 - Type 2 diabetes mellitus without complications Category: Medical Plan: A1c today 6.5%, within goal of less than 7.0%. Previous A1c was 7.0%. Continue current treatment regimen. ADA diet and routine exercise encouraged. Recent LDL is 46, within goal of less than 70. Will recheck A1c in 3 months. Follow-up for an extended physical exam and diabetes on/of the 02/18/2025. Return sooner with symptoms or concerns. Verbalized understanding and agreed with the treatment plan. (2) Hyperlipidemia: Code(s): E78.5 - Hyperlipidemia, unspecified Category: Medical Plan: Recent triglycerides, total cholesterol, and LDL levels are normal; LDL level is slightly low, 37. Continue current treatment regimen. Advised to limit foods high in saturated fat and avoid foods high in trans fat. Routine exercise encouraged. Perform fasting lipid panel blood work before next visit. Verbalized understanding and agreed with the plan. (3) Elevated blood pressure reading without diagnosis of hypertension: Code(s): R03.0 - Elevated blood-pressure reading, without diagnosis of hypertension Category: Medical Plan: Resting blood pressure is 142/82, above goal of less than 130/80. Low-sodium diet encouraged. She intends to purchase a blood pressure monitor. Encouraged to check her blood pressure 2 to 3 times weekly, record readings, and bring to next appointment. Follow-up with blood pressure above above 140/90 with associated symptoms such as headache or visual disturbances. Verbalized understanding and agreed with the plan. Orders: Orders AMB Hemoglobin A1c Today E11.65 - Type 2 diabetes mellitus with hyperglycemia Microalbumin, Random (w Creat) Today E11.9 - Type 2 diabetes mellitus without complications UA CC w/rflx Micro + Cult Today E11.9 - Type 2 diabetes mellitus without complications
[2024-10-19 13:02] VITALS: BP 142/82; PULSE 89; RESP 18; TEMP 36.6; O2SAT 98; BMI 38.2
== END 2024-10-19 13:42 | disposition home or self-care (01) ==
LOC: HO.HMCFM 12:51
PROVIDERS: PCP Nurse Practitioner Family; Visit Provider Nurse Practitioner Family
DX: E11.9 Type 2 diabetes mellitus without complications (principal); E78.5 Hyperlipidemia, unspecified; R03.0 Elevated blood-pressure reading, without diagnosis of hypertension; E11.65 Type 2 diabetes mellitus with hyperglycemia

== ENCOUNTER → 2024-10-19 12:50 | Outpatient (BNVA) | payer OTHER, SELFPAY | PROVIDERS: PCP Nurse Practitioner Family; Visit Provider Nurse Practitioner Family | DX: E11.65 Type 2 diabetes mellitus with hyperglycemia (principal); E78.5 Hyperlipidemia, unspecified; R03.0 Elevated blood-pressure reading, without diagnosis of hypertension | CPT/HCPCS: 83036; 96127; 99212 ==

== ENCOUNTER 2024-10-19 13:47 | Outpatient (REF) | payer OTHER, SELFPAY ==
[2024-10-19 18:20] LABS: Appearance Urine Clear; Glucose Urine UA Negative (Negative); PH 6.0 (5.0-9.0); Specific Gravity - Urine <= 1.005 (1.005-1.025); UMIC TRIGGER UACC YES
== END 2024-10-19 13:48 | disposition home or self-care (01) ==
LOC: HO.WFDLDS 13:47
PROVIDERS: Visit Provider Nurse Practitioner Family
DX: E11.65 Type 2 diabetes mellitus with hyperglycemia (principal)
CPT/HCPCS: 81001; 82043; 82570

== ENCOUNTER 2024-11-22 09:35 | Outpatient (AMB) | payer OTHER, SELFPAY ==
--- NOTE | 2024-11-22 09:58 | MHC.PC.OV ---
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 Required: No Is last menstrual period known: No Post menopausal: No Patient : No Allergies No Known Allergies Allergy (Verified 11/22/24 10:36) Medication List - Last Reconciled 11/22/24 by Amy Eli CNP atorvastatin 10 mg PO BEDTIME 90 days calcium carbonate-vitamin D3 600 mg-5 mcg (200 unit) 1 tab PO BID levocetirizine (Xyzal) 5 mg PO DAILY PRN metformin 850 mg PO TID multivitamin 1 tab PO DAILY semaglutide 1 mg (0.75 mL) subcut QWEEK 4 weeks tamoxifen 20 mg PO DAILY Tobacco use date assessed: 11/22/24 Dental Screening Dental Screen Date: 11/22/24 Did you have a dental visit in the last 12 months?: Yes Did you have a dental problem in the last 6 months where you did not have access to dental care?: No Was dental information given to patient?: Patient has dentist HPI HPI Comments History of Present Illness Details 44-year-old female presents hypertension follow-up. She admits to taking her medications as prescribed without adverse reactions. She notes that she has been making healthy lifestyle changes. She monitors her blood pressure three times weekly and between 128-135/85-89. She offers no complaints and denies acute symptoms at this time. [facility] Medical History (Updated 10/19/24 @ 13:36 by Amy Eli CNP) ASCUS of cervix with negative high risk HPV Diabetes type 2, uncontrolled Surgical History Ovarian mass History of appendectomy Family History Father Prostate CA Cardiovascular disorder Mother No problems noted. 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 Gender identity: Female Cognitive needs: No Hearing needs: No Vision needs: No Female Reproductive History Menstrual Age of Menarche: 11 Questionnaire Thrive Questionnaire Date Thrive assessed: 10/19/24 I am a: Patient What is your living situation today?: I have a steady place to live Within the past 12 months, did the food you bought not last and you didn't have the money to get more?: Never true Within the past 12 months, did you worry whether your food would run out before you got money to buy more?: Never true Do you have trouble paying for medicines?: No Do you have trouble getting transportation to medical appointments?: No Do you have trouble paying your heating and electricity bill?: No Do you have trouble taking care of your child, family member or friend?: No Do you have trouble with day-to-day activities such as bathing, preparing meals, shopping, managing finances, etc.?: No Are you currently unemployed and looking for a job?: No Are you interested in more education?: No Please select the resources that you would like help with: None Currently or been in a relationship where the following occur: No concerns reported THRIVE Score: 0 COLLEEN-7 AMB Questionnaire COLLEEN-7 Date COLLEEN - 7 assessed: 10/19/24 Source: Developed by Drs. Jese Hinson, Daysi Au, Con Andujar and colleagues, with an educational raymundo from [employer]. Review of Systems Const Details: Const Denies chills, Denies fatigue, Denies fever(s), Denies headache(s) and Denies weakness ENT Denies dizziness and Denies headache(s) Card Denies chest pain, Denies lightheadedness, Denies dyspnea and Denies other (Palpitations) Resp Denies cough, Denies dyspnea, Denies wheezing and Denies other ( shortness of breath) GI Denies abdominal pain, Denies melena, Denies hematochezia, Denies change in bowel habits, Denies dyspepsia and Denies nausea Denies hematuria and Denies dysuria Musc Denies abnormal gait, Denies myalgias, Denies arthralgias, Denies numbness and Denies tingling Skin/Breast Denies rash, Denies unusual bruising and Denies wounds Neuro Denies abnormal gait, Denies dizziness, Denies headache(s), Denies memory loss, Denies numbness, Denies Sensory deficit (Neuro), Denies tingling and Denies weakness Psych Denies anxiety, Denies depression, Denies memory loss Endo Denies cold intolerance, Denies fatigue, Denies heat intolerance, Denies polydipsia and Denies polyuria Aller/Immun Denies wheezing Physical exam (Primary Care) Vital Signs: Last Vital Signs Temp 99 F 11/22/24 10:02 Pulse 74 11/22/24 10:02 Resp 16 11/22/24 10:02 BP 129/74 11/22/24 10:02 Pulse Ox 99 11/22/24 10:02 Oxygen Delivery Method Room Air 11/22/24 10:02 BMI result Body Mass Index 37.5 Tobacco/Smoking Status: Tobacco use Status Tobacco use date assessed 11/22/24 11/22/24 10:06 Patient Tobacco Use Status Never used Tobacco 11/22/24 10:00 e-Cigarette/Vaping Use Never Used 11/22/24 10:00 Thrive Assessment: Date of Thrive Assessment Date Thrive assessed 10/19/24 11/22/24 10:00 Currently or been in a relationship where the following occur: No concerns reported Const Other: General: no acute distress and well developed Nutritional Appearance: well nourished Orientation/consciousness: patient oriented x3 HENMT Head: Yes normocephalic and Yes atraumatic Eyes General: appearance normal, both eyes and all related structures Pupils: Equal, round and reactive pupils present EOM: EOMs intact bilaterally Resp Effort & Inspection: normal respiratory effort Auscultation: clear to auscultation bilaterally Cardio Rate: regular rate Rhythm: regular rhythm Heart sounds: S1 normal heart sound present, S2 normal heart sound present, no gallops, no murmurs and no rubs GI Palpation (GI): No Abdominal aortic bruit present, Soft to palpation, nontender, No hepatosplenomegaly present and No Rebound tenderness present Auscultation: normal bowel sounds General: Yes no CVA tenderness Back/Spine/Pelvis Back: no CVA tenderness Cervical Spine: cervical ROM normal and No Cervical spine tenderness Thoracic/Lumbar Spine: thoraco-lumbar ROM normal, No pain with thoraco-lumbar ROM, No thoracic spinal tenderness and No lumbar spinal tenderness Extrem General: Yes normal to inspection, No edema and No calf tenderness Skin General: warm and dry. Normal skin color. Normal skin turgor Neuro General: patient oriented x3, gait normal and no focal neuro deficit Cranial nerves: Yes Equal, round and reactive pupils present Cognition (Neuro): normal cognition Gait exam (Neuro): Normal gait present Sensory Exam: No Sensory deficit (Neuro) Psych Appearance: grossly normal Affect: normal affect Attitude: cooperative Thought process: Normal thought process present Coding Level of Care Code Est Pt Level 3 (15109) Diagnoses Elevated blood pressure reading without diagnosis of hypertension R03.0 Assessment & Plan Assessment & Plan (1) Elevated blood pressure reading without diagnosis of hypertension: Code(s): R03.0 - Elevated blood-pressure reading, without diagnosis of hypertension Category: Medical Plan: Resting blood pressure is 120/70, within goal of less than 130/80. Her home blood pressure is between 128-135/85-89. Low-sodium diet encouraged. Follow-up in 2 months for elevated blood pressure and diabetes Return sooner with symptoms or concerns. Verbalized understanding and agreed with the plan.
[2024-11-22 10:02] VITALS: BP 129/74; PULSE 74; RESP 16; TEMP 37.2; O2SAT 99; BMI 37.5
[2024-11-22 10:40] VITALS: BP 120/70
== END 2024-11-22 10:44 | disposition home or self-care (01) ==
LOC: HO.HMCFM 09:36
PROVIDERS: PCP Nurse Practitioner Family; Visit Provider Nurse Practitioner Family
DX: R03.0 Elevated blood-pressure reading, without diagnosis of hypertension (principal)

== ENCOUNTER → 2024-11-22 09:35 | Outpatient (BNVA) | payer OTHER, SELFPAY | PROVIDERS: PCP Nurse Practitioner Family; Visit Provider Nurse Practitioner Family | DX: I10 Essential (primary) hypertension (principal); Z79.899 Other long term (current) drug therapy | CPT/HCPCS: 99212 ==

== ENCOUNTER 2025-01-13 10:50 | Outpatient (REF) | payer OTHER, SELFPAY ==
--- NOTE | ~2025-01-13 | MR_ITS ---
EXAMINATION: MR BREAST WITHOUT AND WITH CONTRAST, BILATERAL CLINICAL INFORMATION: Z91.89 - Other specified personal risk factors, not elsewhere classified COMPARISON: Screening mammogram on March 15, 2024. Breast MRI on December 31, 2023. Breast MRI on December 19, 2022. Breast MRI on June 19, 2022 TECHNIQUE: MR imaging of the breast was performed using T1, T2 and fat saturated techniques. Dynamic multiphase imaging was also performed after the administration of intravenous gadolinium contrast agent (10 cc of gadolinium Gadavist). Computer generated 3D reconstruction and enhancement kinetic analysis was ulitized by the radiologist in the interpretation of this examination. FINDINGS: Breast composition: Scattered fibroglandular tissue. Minimal background parenchymal enhancement. RIGHT BREAST: No suspicious masses or areas of non mass enhancement. No axillary or internal mammary adenopathy. LEFT BREAST: No suspicious masses or areas of non mass enhancement. No axillary or internal mammary adenopathy. Limited views of the chest and abdomen are unremarkable. MR/MR breast BI wo/w con IMPRESSION: No MR specific evidence of malignancy. ASSESSMENT: BIRADS 1: Negative RECOMMENDATIONS: Yearly screening mammography Yearly Breast MRI screening surveillance. Electronically signed by: Rafaela Cortes MD 01/14/2025 02:06 PM EDT
== END 2025-01-13 10:51 | disposition home or self-care (01) ==
LOC: HO.MRI 10:50
PROVIDERS: PCP Nurse Practitioner Family; Visit Provider Surgery
DX: R92.8 Other abnormal and inconclusive findings on diagnostic imaging of breast (principal); Z91.89 Other specified personal risk factors, not elsewhere classified
CPT/HCPCS: 77049; A9585

== ENCOUNTER → 2025-01-13 10:50 | Outpatient (BNV) | payer OTHER, SELFPAY | PROVIDERS: PCP Nurse Practitioner Family; Visit Provider Radiology Body Imaging | DX: Z91.89 Other specified personal risk factors, not elsewhere classified (principal) | CPT/HCPCS: 77049 ==

== ENCOUNTER 2025-01-27 09:34 | Outpatient (AMB) | payer OTHER, SELFPAY ==
[2025-01-27 10:10] VITALS: BP 164/81; PULSE 92; BMI 37.4
--- NOTE | 2025-01-27 10:10 | A.OFFVIS_ITS ---
Vital Signs 01/27/25 10:10 Height 5 ft 7 in Weight 239 lb BMI 37.4 BP 164/81 H Blood Pressure Location Rt brachial Position Sitting Pulse 92 Intake Visit Reasons: 6 month breast exam Intake Note: Patient here for 6mo breast exam. BRETT (MIGUEL ANGEL): 07-23-2024 Patient c/o: no concerns. Denies br tenderness, lumps, nipple discharge. Reports no changes in medical hx since last visit. Imaging: Bilateral breast MRI~ 01-13-2025 Mammogram: scheduled 03-22-2025 Crossing Guard Required: No Accompanied by: Self / Same As Patient Allergies No Known Allergies Allergy (Verified 01/27/25 10:12) HPI HPI 6 month breast exam: Details: 44-year-old female patient returning for a high risk breast examination. Her family history includes a paternal grandmother and paternal aunt with breast cancer. She has a history of bilateral breast skin infections which improved after starting antibacterial soaps. She denies a previous history of breast surgery or breast cancer. She is , menarche at age 11, and is postmenopausal for greater than 20 years. The Tyrer-Cuzick remaining lifetime risk of breast cancer was calculated at 26% placing her at high risk for breast cancer. She was placed on the high risk protocol including yearly mammogram and breast MRI alternating every 6 months, twice yearly clinical breast examination and monthly self examinations. Breast MRI on 06/28/2022 revealed bilateral areas of indeterminate enhancing at the 11:00 o'clock on the left breast and 02:00 o'clock on the right breast, both felt to be suspicious for malignancy. Bilateral mammogram and ultrasounds were recommended. These were obtained on 06/28/2022 and no correlate could be identified to the MR findings. As a result, six-month follow-up breast MRI was obtained on 12/19/2022 which revealed no suspicious masses or suspicious interval changes (BI-RADS 3 bilaterally). Mammogram of 03/15/2024 revealed no mammographic evidence of malignancy (BI-RADS 1). Her most recent MRI performed on 01/13/2025 revealed no MR specific evidence of malignancy (BI-RADS 1 bilaterally). She is scheduled for a routine annual mammogram on 03/22/2025. She has no concerns at today's visit. She denies any changes to her personal or family history. [facility] Medical History (Updated 10/19/24 @ 13:36 by Amy Eli CNP) ASCUS of cervix with negative high risk HPV Diabetes type 2, uncontrolled Surgical History Ovarian mass History of appendectomy Family History Father Prostate CA Cardiovascular disorder Mother No problems noted. 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[employer] Sexual orientation: Straight/Heterosexual Gender identity: Female Cognitive needs: No Hearing needs: No Vision needs: No Female Reproductive History Menstrual Age of Menarche: 11 Review of Systems Const Denies chills and Denies fever(s) ENT Denies dizziness Card Denies chest pain and Denies dyspnea Resp Denies dyspnea GI Denies abdominal pain, Denies diarrhea, Denies nausea and Denies vomiting Skin/Breast Denies breast skin changes, Denies breast pain and Denies breast mass Neuro Denies dizziness Physical Exam Vital Signs: Last Vital Signs Pulse 92 01/27/25 10:10 BP 164/81 H 01/27/25 10:10 BMI result Body Mass Index 37.4 Const General: comfortable, no acute distress and alert Orientation/consciousness: patient oriented x3 Chest Other: Left breast- no skin change, no nipple retraction, no nipple discharge, no palpable mass, no enlarged lymph nodes Right breast- no skin change, no nipple retraction, no nipple discharge, no palpable mass, no enlarged lymph nodes Resp Effort & Inspection: normal respiratory effort Skin General skin exam: no rashes or lesions noted Neuro General: patient oriented x3 and moves all extremities Assessment & Plan Assessment & Plan (1) At high risk for breast cancer: Comment: On tamoxifen Code(s): Z91.89 - Other specified personal risk factors, not elsewhere classified Category: Medical Plan 44-year-old female patient felt to be at high risk for breast cancer returning for a routine breast examination. She denies any new breast symptoms in either breast examination today revealed no suspicious findings. Her most recent mammogram on 03/15/2024 as well as most recent MRI on 01/13/25 revealed no mammographic evidence of malignancy (BI-RADS 1 bilaterally). She will continue her high-risk screening and has her yearly mammogram scheduled for 03/22/2025. She will return in 6 months for routine breast examination or sooner if she develops concerns. Coding Level of Care Code Est Pt Level 3 (01602) Diagnoses At high risk for breast cancer Z91.89
== END 2025-01-27 10:27 | disposition home or self-care (01) ==
LOC: HO.HGS 09:35
PROVIDERS: PCP Nurse Practitioner Family; Visit Provider Physician Assistant Surgical
DX: Z91.89 Other specified personal risk factors, not elsewhere classified (principal)
CPT/HCPCS: 99213

== ENCOUNTER → 2025-01-27 09:34 | Outpatient (BNVA) | payer OTHER, SELFPAY | PROVIDERS: PCP Nurse Practitioner Family; Visit Provider Physician Assistant Surgical | DX: Z12.39 Encounter for other screening for malignant neoplasm of breast (principal); Z80.3 Family history of malignant neoplasm of breast | CPT/HCPCS: 99212 ==

== ENCOUNTER 2025-02-01 12:12 | Outpatient (AMB) | payer OTHER, SELFPAY ==
--- NOTE | 2025-02-01 12:15 | MHC.PC.OV ---
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 She admits to taking her medications as prescribed without adverse reactions. She notes that she has been making healthy lifestyle choices. She offers no complaints and denies acute symptoms at this time. [facility] Medical History (Updated 02/01/25 @ 12:45 by Amy Eli CNP) ASCUS of cervix with negative high risk HPV Diabetes type 2, uncontrolled Surgical History Ovarian mass History of appendectomy Family History Father Prostate CA Cardiovascular disorder Mother No problems noted. 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 Gender identity: Female Cognitive needs: No Hearing needs: No Vision needs: No Female Reproductive History Menstrual Age of Menarche: 11 Questionnaire Thrive Questionnaire Date Thrive assessed: 10/19/24 I am a: Patient What is your living situation today?: I have a steady place to live Within the past 12 months, did the food you bought not last and you didn't have the money to get more?: Never true Within the past 12 months, did you worry whether your food would run out before you got money to buy more?: Never true Do you have trouble paying for medicines?: No Do you have trouble getting transportation to medical appointments?: No Do you have trouble paying your heating and electricity bill?: No Do you have trouble taking care of your child, family member or friend?: No Do you have trouble with day-to-day activities such as bathing, preparing meals, shopping, managing finances, etc.?: No Are you currently unemployed and looking for a job?: No Are you interested in more education?: No Please select the resources that you would like help with: None Currently or been in a relationship where the following occur: No concerns reported THRIVE Score: 0 COLLEEN-7 AMB Questionnaire COLLEEN-7 Date COLLEEN - 7 assessed: 10/19/24 Source: Developed by Drs. Jese Hinson, Daysi Au, Con Andujar and colleagues, with an educational raymundo from [employer]. Review of Systems Const Details: Const Denies chills, Denies fatigue, Denies fever(s), Denies headache(s) and Denies weakness ENT Denies dizziness and Denies headache(s) Card Denies chest pain, Denies lightheadedness, Denies dyspnea and Denies other (Palpitations) Resp Denies cough, Denies dyspnea, Denies wheezing and Denies other ( shortness of breath) GI Denies abdominal pain, Denies melena, Denies hematochezia, Denies change in bowel habits, Denies dyspepsia and Denies nausea Denies hematuria and Denies dysuria Musc Denies abnormal gait, Denies myalgias, Denies arthralgias, Denies numbness and Denies tingling Skin/Breast Denies rash, Denies unusual bruising and Denies wounds Neuro Denies abnormal gait, Denies dizziness, Denies headache(s), Denies memory loss, Denies numbness, Denies Sensory deficit (Neuro), Denies tingling and Denies weakness Psych Denies anxiety, Denies depression, Denies memory loss Endo Denies cold intolerance, Denies fatigue, Denies heat intolerance, Denies polydipsia and Denies polyuria Aller/Immun Denies wheezing Physical exam (Primary Care) Vital Signs: Last Vital Signs Temp 97.9 F 02/01/25 12:20 Pulse 101 H 02/01/25 12:20 Resp 16 02/01/25 12:20 BP 127/70 02/01/25 12:20 Pulse Ox 98 02/01/25 12:20 Oxygen Delivery Method Room Air 02/01/25 12:20 BMI result Body Mass Index 38.0 Tobacco/Smoking Status: Tobacco use Status Tobacco use date assessed 02/01/25 02/01/25 12:26 Patient Tobacco Use Status Never used Tobacco 02/01/25 12:18 e-Cigarette/Vaping Use Never Used 02/01/25 12:18 Thrive Assessment: Date of Thrive Assessment Date Thrive assessed 10/19/24 02/01/25 12:18 Currently or been in a relationship where the following occur: No concerns reported Const Other: General: no acute distress and well developed Nutritional Appearance: well nourished Orientation/consciousness: patient oriented x3 HENMT Head: Yes normocephalic and Yes atraumatic Eyes General: appearance normal, both eyes and all related structures Pupils: Equal, round and reactive pupils present EOM: EOMs intact bilaterally Resp Effort & Inspection: normal respiratory effort Auscultation: clear to auscultation bilaterally Cardio Rate: regular rate Rhythm: regular rhythm Heart sounds: S1 normal heart sound present, S2 normal heart sound present, no gallops, no murmurs and no rubs Extrem General: Yes normal to inspection, No edema and No calf tenderness Skin General: warm and dry. Normal skin color. Normal skin turgor Neuro General: patient oriented x3, gait normal and no focal neuro deficit Cranial nerves: Yes Equal, round and reactive pupils present Cognition (Neuro): normal cognition Gait exam (Neuro): Normal gait present Sensory Exam: No Sensory deficit (Neuro) Psych Appearance: grossly normal Affect: normal affect Attitude: cooperative Thought process: Normal thought process present Results AMB Hemoglobin A1c AMB Hemoglobin A1c 6.7 % Last Edit by JESSICA Dillon on 02/01/25 12:37 Coding Level of Care Code Est Pt Level 4 (11440) Diagnoses Type 2 diabetes mellitus E11.9 Elevated blood pressure reading without diagnosis of hypertension R03.0 Encounter for weight management Z76.89 Assessment & Plan Assessment & Plan (1) Type 2 diabetes mellitus: Code(s): E11.9 - Type 2 diabetes mellitus without complications Category: Medical Plan: A1c today 6.7%, within goal of less than 7.0%. Previous A1c was 6.5%. Continue current treatment regimen. ADA diet and routine exercise encouraged. Will recheck A1c in 3 months. Perform nonfasting blood work at least a few days before next visit. Follow-up for an extended physical exam as planned next month. Will also review recent labs. Return sooner with symptoms or concerns. Verbalized understanding and agreed with the plan. (2) Elevated blood pressure reading without diagnosis of hypertension: Code(s): R03.0 - Elevated blood-pressure reading, without diagnosis of hypertension Category: Medical Plan: Blood pressure today is 127/70, within goal of less than 140/90. Healthy diet encouraged. Will continue to monitor. Verbalized understanding and agreed with the plan. (3) Encounter for weight management: Code(s): Z76.89 - Persons encountering health services in other specified circumstances Category: Medical Plan: She currently weighs 242 lb, BMI is 38.0. She has been on semaglutide 1 mg weekly for several months without significant improvement. Semaglutide increased to 2 mg weekly; advised to take as prescribed. Follow-up with symptoms or concerns. Verbalized understanding and agreed with the plan. Orders: Orders AMB Hemoglobin A1c Today Z13.9 - Encounter for screening, unspecified TSH reflex Free T4 Today E11.9 - Type 2 diabetes mellitus without complications Complete Blood Count Auto Diff Today E11.9 - Type 2 diabetes mellitus without complications Vitamin D 25-OH Total Today E11.9 - Type 2 diabetes mellitus without complications Medications: New semaglutide 2 mg (0.75 mL) subcut QWEEK 3 mL 0RF 4 weeks Discontinued semaglutide Discontinued Reason: Doctor's Order 1 mg (0.75 mL) subcut QWEEK 4 weeks 3 mL 3RF
[2025-02-01 12:20] VITALS: BP 127/70; PULSE 101; RESP 16; TEMP 36.6; O2SAT 98; BMI 38.0
== END 2025-02-01 12:42 | disposition home or self-care (01) ==
LOC: HO.HMCFM 12:13
PROVIDERS: PCP Nurse Practitioner Family; Visit Provider Nurse Practitioner Family
DX: E11.9 Type 2 diabetes mellitus without complications (principal); R03.0 Elevated blood-pressure reading, without diagnosis of hypertension; Z76.89 Persons encountering health services in other specified circumstances; Z13.9 Encounter for screening, unspecified

== ENCOUNTER → 2025-02-01 12:12 | Outpatient (BNVA) | payer OTHER, SELFPAY | PROVIDERS: PCP Nurse Practitioner Family; Visit Provider Nurse Practitioner Family | DX: E11.9 Type 2 diabetes mellitus without complications (principal); R03.0 Elevated blood-pressure reading, without diagnosis of hypertension; Z76.89 Persons encountering health services in other specified circumstances | CPT/HCPCS: 83036; 99212 ==

== ENCOUNTER 2025-02-24 11:56 | Outpatient (REF) | payer OTHER, SELFPAY ==
[2025-02-24 14:20] LABS: MANUAL DIFF FLAG NO
[2025-02-24 14:24] LABS: Hematocrit 39.0 % (37.0-47.0); Hemoglobin 12.8 g/dl (12.0-16.0); Imm Gran Abs Auto 0.08 X10*3/uL (0.00-0.03); Imm Gran Pct Auto 0.7 % (0.0-0.4); Lymphocytes Absolute Auto 4.8 X10*3/uL (1.2-4.9); Mean Corpuscular HGB Conc 32.8 g/dl (31.0-35.0); Mean Corpuscular Hemoglobin 29.5 pg (27.0-33.0); Mean Corpuscular Volume 89.9 fL (80.0-98.0); NRBC Abs Auto 0.000 X10*3/uL (0.0-0.012); NRBC Pct Auto 0.0 /100WBC (0.0-0.2); Platelet Count 269 X10*3/uL (160-400); Red Blood Count 4.34 X10*6/uL (4.20-5.50); White Blood Count 11.1 X10*3/uL (4.8-10.8)
== END 2025-02-24 11:57 ==
LOC: HO.HMGCLDS 11:56
PROVIDERS: PCP Nurse Practitioner Family; Visit Provider Nurse Practitioner Family
DX: E11.9 Type 2 diabetes mellitus without complications (principal)
CPT/HCPCS: 36415; 82306; 84443; 85025

== ENCOUNTER 2025-03-01 10:04 | Outpatient (AMB) | payer OTHER, SELFPAY ==
--- NOTE | 2025-03-01 10:24 | MHC.PC.OV ---
Vital Signs 03/01/25 10:30 03/01/25 10:48 Height 5 ft 7 in Weight 241 lb BMI 37.7 BP 138/67 130/72 Blood Pressure Location Lt brachial Rt brachial Position Sitting Sitting Respiration 13 Pulse 77 Pulse Source Pulse Oximeter Temp 96.3 F L Temp Source Temporal Artery Scan Pulse Oximetry (%) 100 Oxygen Delivery Method Room Air Intake Visit Reasons: CPE Intake Note: CPE Pavilion Cutter Required: No Allergies No Known Allergies Allergy (Verified 03/01/25 10:42) Medication List - Last Reconciled 03/01/25 by Amy Eli CNP atorvastatin 10 mg PO BEDTIME 90 days calcium carbonate-vitamin D3 600 mg-5 mcg (200 unit) 1 tab PO BID levocetirizine (Xyzal) 5 mg PO DAILY PRN metformin 850 mg PO TID multivitamin 1 tab PO DAILY semaglutide 2 mg (0.75 mL) subcut QWEEK 4 weeks tamoxifen 20 mg PO DAILY Tobacco use date assessed: 03/01/25 Dental Screening Dental Screen Date: 03/01/25 Did you have a dental visit in the last 12 months?: Yes Did you have a dental problem in the last 6 months where you did not have access to dental care?: No Was dental information given to patient?: Patient has dentist HPI HPI Comments History of Present Illness Details 44-year-old female presents for an extended physical exam and review of recent lab results. She admits to taking her medications as prescribed without adverse reactions. Acute issue(s) - None Past Medical History - Type 2 diabetes, hyperlipidemia, obesity, myopia, high-risk for breast cancer, elevated blood pressure reading without diagnosis of hypertension Social History - Nonsmoker. Does not vape. Does not drink alcohol. Denies recreational drug use - Has been making healthy dietary choices. Exercises routinely. Generally sleep well Health maintenance - Last eye exam was in 04/[address] Young, [facility]. 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 1. Little interest or pleasure in doing things: not at all 2. Feeling down, depressed, or hopeless: not at all 3. Trouble falling or staying asleep, or sleeping too much: not at all 4. Feeling tired or having little energy: not at all 5. Poor appetite or overeating: not at all 6. Feeling bad about yourself - or that you are a failure or have let yourself or your family down: not at all 7. Trouble concentrating on things, such as reading the newspaper or watching television: not at all 8. Moving or speaking so slowly that other people could have noticed. Or the opposite - being so fidgety or restless that you have been moving around a lot more than usual: not at all 9. Thoughts that you would be better off or of hurting yourself in some way: not at all Total score: 0 Depression Screening Interpretation: Negative Depression Screening Done: Yes 08636 - PHQ-9 Billing: Yes Source: Developed by Drs. Jese Hinson, Con Somers and colleagues, with an educational raymundo from [employer]. Thrive Questionnaire Date Thrive assessed: 03/01/25 I am a: Patient What is your living situation today?: I have a steady place to live Within the past 12 months, did the food you bought not last and you didn't have the money to get more?: Never true Within the past 12 months, did you worry whether your food would run out before you got money to buy more?: Never true Do you have trouble paying for medicines?: No Do you have trouble getting transportation to medical appointments?: No Do you have trouble paying your heating and electricity bill?: No Do you have trouble taking care of your child, family member or friend?: No Do you have trouble with day-to-day activities such as bathing, preparing meals, shopping, managing finances, etc.?: No Are you currently unemployed and looking for a job?: No Are you interested in more education?: No Please select the resources that you would like help with: None Currently or been in a relationship where the following occur: No concerns reported THRIVE Score: 0 AUDIT C Alcohol Use Questionnaire (AUDIT-C) 1. How often do you have a drink containing alcohol?: Never 3. How often do you have six or more drinks on one occasion?: Never Total Score: 0 Score Reviewed/Action Taken: Yes COLLEEN-7 AMB Questionnaire COLLEEN-7 Date COLLEEN - 7 assessed: 03/01/25 Feeling nervous, anxious, or on edge: 0 = Not at all Not being able to stop or control worryin = Not at all Worrying too much about different things: 0 = Not at all Trouble relaxin = Not at all Being so restless that it is hard to sit still: 0 = Not at all Becoming easily annoyed or irritable: 0 = Not at all Feeling afraid as if something awful might happen: 0 = Not at all Total COLLEEN-7 score (0-4 normal; 5-9 mild; 10-14 moderate; 15-21 severe): 0 Source: Developed by Drs. Jese Hinson, Daysi Au, Con Andujar and colleagues, with an educational raymundo from [employer]. COLLEEN-7 Assessment Billing COLLEEN-7 Assessment Tool: COLLEEN-7 Assessment 53429 Review of Systems Const Details: Denies chills, Denies fatigue, Denies fever(s), Denies headache(s) and Denies weakness HEENT Denies change in vision, Denies dizziness, Denies headache(s), Denies hearing loss, Denies nasal congestion, Denies sinus pain, Denies sinus pressure and Denies sore throat Card Denies chest pain, Denies lightheadedness, Denies dyspnea and Denies other (palpitations) Resp Denies cough, Denies dyspnea and Denies wheezing GI Denies abdominal pain, Denies melena, Denies hematochezia, Denies change in bowel habits, Denies dyspepsia and Denies nausea Denies hematuria and Denies dysuria Musc Denies abnormal gait, Denies myalgias, Denies arthralgias, Denies numbness and Denies tingling Skin/Breast Denies rash, Denies unusual bruising and Denies wounds Neuro Denies abnormal gait, Denies dizziness, Denies headache(s), Denies memory loss, Denies numbness, Denies Sensory deficit (Neuro), Denies tingling and Denies weakness Psych Denies anxiety, Denies depression and Denies memory loss Endo Denies cold intolerance, Denies fatigue, Denies heat intolerance, Denies polydipsia and Denies polyuria Arie/Lymph Denies easy bleeding and Denies easy bruising Aller/Immun Denies wheezing Physical exam (Primary Care) Vital Signs: Last Vital Signs Temp 96.3 F L 03/01/25 10:30 Pulse 77 03/01/25 10:30 Resp 13 03/01/25 10:30 BP 130/72 03/01/25 10:48 Pulse Ox 100 03/01/25 10:30 Oxygen Delivery Method Room Air 03/01/25 10:30 BMI result Body Mass Index 37.7 Tobacco/Smoking Status: Tobacco use Status Tobacco use date assessed 03/01/25 03/01/25 10:26 Patient Tobacco Use Status Never used Tobacco 03/01/25 10:26 e-Cigarette/Vaping Use Never Used 03/01/25 10:26 PHQ-9: PHQ-9 Score PHQ-9: Total score 0 03/01/25 10:29 Depression Screening Interpretation: Negative Thrive Assessment: Date of Thrive Assessment Date Thrive assessed 03/01/25 03/01/25 10:26 Currently or been in a relationship where the following occur: No concerns reported Const Other: General: no acute distress, well developed, alert and awake Nutritional Appearance: well nourished Orientation/consciousness: patient oriented x3 [facility] Head: Yes normocephalic and Yes atraumatic Ears: hearing grossly normal bilaterally and TM's normal bilaterally General nose exam: Normal external nose present and Normal nares present Mouth: Normal oral and palatal mucosa present and moist mucous membranes Teeth and gingiva: dentition normal Throat: Yes oropharynx normal Eyes Pupils: Equal, round and reactive pupils present and Pupil accommodation reflex normal EOM: EOMs intact bilaterally Neck Neck: Yes normal visual inspection, Yes no lymphadenopathy and Yes trachea midline Thyroid: Thyroid normal Carotids: no bruits Lymphatic: no lymphadenopathy noted Chest Chest palpation & inspection: normal inspection of the chest Resp Effort & Inspection: normal respiratory effort Auscultation: clear to auscultation bilaterally Cardio Rate: regular rate Rhythm: regular rhythm Heart sounds: S1 normal heart sound present, S2 normal heart sound present, no gallops, no murmurs and no rubs Bruits: no abdominal aortic bruits and no carotid bruits GI Palpation (GI): No Abdominal aortic bruit present, Soft to palpation, nontender, No hepatosplenomegaly present and No Rebound tenderness present Auscultation: normal bowel sounds General: Yes no CVA tenderness Back/Spine/Pelvis Back: no CVA tenderness Cervical Spine: cervical ROM normal and No Cervical spine tenderness Thoracic/Lumbar Spine: thoraco-lumbar ROM normal, No pain with thoraco-lumbar ROM, No thoracic spinal tenderness and No lumbar spinal tenderness Skin General: warm and dry. Normal skin color. Normal skin turgor Lesions: no lesions Rashes: no rashes Trauma: no lacerations or abrasions Wounds: no wounds Nails: normal Neuro General: patient oriented x3, gait normal and CN's II-XI intact bilaterally Cranial nerves: Yes Equal, round and reactive pupils present Cognition (Neuro): normal cognition Gait exam (Neuro): Normal gait present Motor exam (neuro): 5/5 motor strength present throughout Sensory Exam: No Sensory deficit (Neuro) Deep tendon reflexes (DTR's): Right patellar reflex intensity grade: 2+ and Left patellar reflex intensity grade: 2+ Extrem General: Yes normal to inspection, No edema and No calf tenderness Psych Appearance: grossly normal Affect: normal affect Attitude: cooperative Thought process: Normal thought process present Immunizations Boostrix Tdap 2.5 Lf unit-8 mcg-5 Lf/0.5 mL intramuscular syringe Performing Provider: Amy Eli CNP [place] [facility] [place] Administered by: Armaan Xiao RN on 03/01/25 11:10 Dose Route Admin Location Dispensed Lot Number Expiration Date FORMERLY NAMED [facility] [employer] 0.5 mL IM Right Deltoid 0.5 mL [id number] 08/27/27 77823-921-05 [employer] Total Dispensed Waste 0.5 mL 0 % VIS Given Date VIS Provided VIS Publication Date 03/01/25 Single Vaccine 20 Eligibility Eligibility Date Funding Source Not [facility] Eligible 03/01/25 Private Coding Level of Care Code Est Pt Level 3 (78186) Est Pt Prev Care 40-64y(76831) Diagnoses Normal physical exam Z00.00 Leukocytosis D72.829 Elevated blood pressure reading without diagnosis of hypertension R03.0 Obesity (BMI 30-39.9) E66.9 Additional Codes COLLEEN-7 Assessment Billing - COLLEEN-7 Assessment Tool: COLLEEN-7 Assessment 21750 ([id number]) PHQ-9 - 99016 - PHQ-9 Billing: Yes ([id number]) Assessment & Plan Assessment & Plan (1) Normal physical exam: Code(s): Z00.00 - Encounter for general adult medical examination without abnormal findings Category: Medical Plan: No significant functional limitations noted. Continue current treatment regimen. Healthy diet and routine exercise encouraged. Follow-up in 3 months for transfer of care with a PCP within the practice. Return sooner with symptoms or concerns. Verbalized understanding and agreed with plan. (2) Leukocytosis: Code(s): D72.829 - Elevated white blood cell count, unspecified Category: Medical Plan: Recent WBC is slightly elevated, 11.1. Equivocal. May be attributed to inflammation. Will recheck CBC and make changes as needed. Verbalized understanding and agreed with the plan. (3) Elevated blood pressure reading without diagnosis of hypertension: Code(s): R03.0 - Elevated blood-pressure reading, without diagnosis of hypertension Category: Medical Plan: Resting blood pressure is 130/70. Low-sodium diet encouraged. Follow-up planned. Verbalized understanding and agreed with the plan. (4) Obesity (BMI 30-39.9): Code(s): E66.9 - Obesity, unspecified Category: Medical Plan: She currently weighs 241 lb, BMI is 37.7. Declines referral to group account director/dietitian or weight management clinic at this time and notes she will continue with lifestyle changes. Continue with semaglutide as prescribed. Healthy diet and routine exercise encouraged. Follow-up as needed. Verbalized understanding and agreed with the plan. Orders: Orders Complete Blood Count Auto Diff Today D72.829 - Elevated white blood cell count, unspecified TDaP Immunization Today Z23 - Encounter for immunization
[2025-03-01 10:30] VITALS: BP 138/67; PULSE 77; RESP 13; TEMP 35.7; O2SAT 100; BMI 37.7
[2025-03-01 10:48] VITALS: BP 130/72
== END 2025-03-01 11:08 | disposition home or self-care (01) ==
LOC: HO.HMCFM 10:05
PROVIDERS: PCP Nurse Practitioner Family; Visit Provider Nurse Practitioner Family
DX: Z00.00 Encounter for general adult medical examination without abnormal findings (principal); R03.0 Elevated blood-pressure reading, without diagnosis of hypertension; E66.9 Obesity, unspecified; Z68.37 Body mass index [BMI] 37.0-37.9, adult; D72.829 Elevated white blood cell count, unspecified; Z23 Encounter for immunization

== ENCOUNTER 2025-03-01 10:04 | Outpatient (REF) | payer OTHER, SELFPAY ==
[2025-03-01 16:05] LABS: MANUAL DIFF FLAG NO
[2025-03-01 16:17] LABS: Hematocrit 38.3 % (37.0-47.0); Hemoglobin 12.3 g/dl (12.0-16.0); Imm Gran Abs Auto 0.03 X10*3/uL (0.00-0.03); Imm Gran Pct Auto 0.4 % (0.0-0.4); Lymphocytes Absolute Auto 3.6 X10*3/uL (1.2-4.9); Mean Corpuscular HGB Conc 32.1 g/dl (31.0-35.0); Mean Corpuscular Hemoglobin 29.8 pg (27.0-33.0); Mean Corpuscular Volume 92.7 fL (80.0-98.0); NRBC Abs Auto 0.000 X10*3/uL (0.0-0.012); NRBC Pct Auto 0.0 /100WBC (0.0-0.2); Platelet Count 258 X10*3/uL (160-400); Red Blood Count 4.13 X10*6/uL (4.20-5.50); White Blood Count 8.5 X10*3/uL (4.8-10.8)
== END 2025-03-01 10:05 | disposition home or self-care (01) ==
LOC: HO.WFDLDS 10:04
PROVIDERS: PCP Nurse Practitioner Family; Visit Provider Nurse Practitioner Family
DX: Z23 Encounter for immunization (principal); Z00.00 Encounter for general adult medical examination without abnormal findings; D72.829 Elevated white blood cell count, unspecified; R03.0 Elevated blood-pressure reading, without diagnosis of hypertension; E66.9 Obesity, unspecified; Z68.37 Body mass index [BMI] 37.0-37.9, adult
CPT/HCPCS: 36415; 85025; 90471; 90715; 96127; 99396